=== PATIENT | female | born 1985 | race Caucasian/White ===

== ENCOUNTER 2017-11-14 10:13 | Emergency (ER) | payer MEDICAID, SELFPAY ==
[2017-11-14 10:13] VITALS: BP 144/55; PULSE 60; RESP 18; TEMP 36.6; O2SAT 99; BMI 24.5
--- NOTE | 2017-11-14 10:25 | EKG12_ITS ---
Test Reason : CHEST PAIN Blood Pressure : / mmHG Vent. Rate : 057 BPM Atrial Rate : 057 BPM P-R Int : 132 ms QRS Dur : 072 ms QT Int : 418 ms P-R-T Axes : 000 078 060 degrees QTc Int : 406 ms Sinus bradycardia Septal infarct , age undetermined Abnormal ECG Confirmed by ELVIA HUNTLEY, NILAM ([id number]), telegraph editor RAH BEY ([id number]) on 11/17/2017 4:03:21 PM Referred By: MARCELO Confirmed By:NILAM GAN MD
[2017-11-14] MEDS: Aspirin 81 MG TAB.CHEW 324 MG PO (10:31)
[2017-11-14 10:32] VITALS: BP 104/68; PULSE 61
--- NOTE | 2017-11-14 10:34 | ED.VISSUMM ---
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 Denies previous episodes of chest pain. Reports left-sided parasternal chest pain with radiation to the left upper extremity. Denies shortness of breath. Denies diaphoresis. Denies nausea/vomiting. Physical Examination: [] Afebrile, vital signs stable. 31-year-old female in no acute distress. Cardiovascular exam is regular rate and rhythm. Lungs are clear to auscultation. Abdomen is soft and nontender. No lower extremity edema. Test Results: [] EKG shows normal sinus rhythm, rate of 57 without ischemia or ectopy. There are noticeable U waves consistent with hypokalemia in the EKG. Emergency Department Course and Treatment: [] CBC, BMP returned normal with the exception of a potassium of 3.0. This finding is reflected in the EKG. This may be the cause of the patient's nonspecific symptoms. Troponin negative. D-dimer negative. Chest x-ray negative. Treatment Plan: [] Patient provided aspirin nitroglycerin upon arrival. After the diagnostic and laboratory findings identified hypokalemia the patient was provided 40 mEq of K-Dur orally. She will be given a prescription for K-Dur to take for the next 10 days. She was encouraged to add potassium to her diet through fruits and vegetables. Disposition: [] Discharge, stable. Impression: [] Chest pain Hypokalemia This note was generated with [employer] dictation software. It may contain incorrect words, spelling, and punctuation that were not noted in review of the chart prior to signing ED Disposition - Plan for ED Patient: Chief Complaint: Chest Pain Referrals: Aaron Stanley MD [Primary Care Provider] -
--- NOTE | 2017-11-14 10:38 | ED.DCSUM_ITS ---
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 Denies previous episodes of chest pain. Reports left-sided parasternal chest pain with radiation to the left upper extremity. Denies shortness of breath. Denies diaphoresis. Denies nausea/vomiting. Physical Examination: [] Afebrile, vital signs stable. 31-year-old female in no acute distress. Cardiovascular exam is regular rate and rhythm. Lungs are clear to auscultation. Abdomen is soft and nontender. No lower extremity edema. Test Results: [] EKG shows normal sinus rhythm, rate of 57 without ischemia or ectopy. There are noticeable U waves consistent with hypokalemia in the EKG. Emergency Department Course and Treatment: [] CBC, BMP returned normal with the exception of a potassium of 3.0. This finding is reflected in the EKG. This may be the cause of the patient's nonspecific symptoms. Troponin negative. D-dimer negative. Chest x-ray negative. Treatment Plan: [] Patient provided aspirin nitroglycerin upon arrival. After the diagnostic and laboratory findings identified hypokalemia the patient was provided 40 mEq of K- Dur orally. She will be given a prescription for K-Dur to take for the next 10 days. She was encouraged to add potassium to her diet through fruits and vegetables. Disposition: [] Discharge, stable. Impression: [] Chest pain Hypokalemia This note was generated with [employer] dictation software. It may contain incorrect words, spelling, and punctuation that were not noted in review of the chart prior to signing ED Disposition - Plan for ED Patient: Chief Complaint: Chest Pain Referrals: Aaron Stanley MD [Primary Care Provider] -
[2017-11-14 10:40] LABS: Absolute Lymphocyte Count 2.74 X10^3/ul (0.83-4.51); Absolute Neutrophil Count 3.2 X10^3/uL (2.0-7.7); Basophil# 0.03 X10^3/uL; Basophil% 0.5 % (0-1); Eosinophil# 0.17 X10^3/uL; Eosinophils% 2.6 % (0-5); Hematocrit 43.2 % (37-47); Lymphocyte # 2.74 X10^3/ul (4.0); Lymphocyte % 41.1 % (19-41); Mean Corp Hgb Conc 34.7 g/gl (32-36); Mean Corpuscular Hgb 31.1 pg (27.0-32.0); Mean Corpuscular Volume 89.4 fL (81-99); Monocyte# 0.49 X10^3/uL; Monocyte% 7.4 % (0-10); Neutrophil # 3.22 X10^3/uL (2.7-7.7); Neutrophil % 48.2 % (47-70); POSITIVE COUNT NO; POSITIVE DIFFERENTIAL NO; POSITIVE MORPHOLOGY NO; Platelet Count 212 K/mm3 (150-450); RBC Distribution Width CV 12.5 % (11.6-14.6); RBC Distribution Width SD 39.9 fl (35.1-43.9); Red Blood Count 4.83 M/mm3 (4.2-5.4); White Blood Count 6.7 K/mm3 (4.4-11.0)
[2017-11-14 10:43] VITALS: BP 107/55; PULSE 57
--- NOTE | 2017-11-14 10:44 | RAD_ITS ---
STUDY: X-RAY CHEST REASON FOR EXAM: Female, 31 years old. Left arm numbness, chest pain TECHNIQUE: Frontal and lateral views COMPARISON: None. FINDINGS: The lungs are clear and expanded. There is no demonstrated pleural abnormality. Normal size heart. Normal mediastinum and [place]. Normal visualized pulmonary arteries. Normal visualized aortic arch and descending thoracic aorta. Normal visualized thoracic spine. Normal visualized ribs, clavicles, and shoulders. There is no demonstrated abnormality of the visualized soft tissue structures of the upper abdomen. RAD/Chest PA and Lateral IMPRESSION: Normal x-ray examination of the chest. Electronically Signed: Renaldo Neal DO at 11:18 EDT Tel [phone], Service support ,
[2017-11-14 10:48] LABS: D-Dimer Quantitative (DVT/PE) < 0.27 FEU/ug/m (0.27-0.49)
[2017-11-14 10:55] LABS: Anion Gap 8 (5-15); BUN 6 mg/dL (7-18); BUN/Creat Ratio 8.1 RATIO (10-20); Calcium,Total 8.8 mg/dL (8.5-10.1); Chloride 107 mmol/L (98-107); Creatinine, Serum 0.74 mg/dL (0.55-1.02); EST Glomerular Filtration Rate 97 mL/min (>60); Est Glom Filt Rate - Afr Amer 117 mL/min (>60); Estimated Creatinine Clearance 94.25 ml/min; Glucose 79 mg/dL (74-106); Sodium Level 140 mmol/L (136-145)
[2017-11-14 11:11] VITALS: O2SAT 100
[2017-11-14 11:27] VITALS: BP 103/64; PULSE 52; RESP 16; O2SAT 100
--- NOTE | 2017-11-14 11:32 | ED.DEP ---
ED Disposition - Plan for ED Patient: Disposition: Home or Assisted Living Chief Complaint: Chest Pain Instructions: ED Chest Pain NonCardiac, ED Potassium Deficiency Prescriptions: Potassium Chloride [K-Dur] 20 meq PO BID #20 tab Referrals: Aaron Stanley MD [Primary Care Provider] -
== END 2017-11-14 11:44 | disposition home or self-care (01) ==
PROVIDERS: Emergency Provider Emergency Medicine; Family Provider Family Medicine; PCP Family Medicine
DX: R07.9 Chest pain, unspecified (principal); E87.6 Hypokalemia; Z72.0 Tobacco use
CPT/HCPCS: 71046; 80048; 84484; 85025; 85379; 93005; 99284; J7030; A4216

== ENCOUNTER 2017-12-21 14:36 | Emergency (ER) | payer MEDICAID, SELFPAY ==
[2017-12-21 14:36] VITALS: BP 139/73; PULSE 57; RESP 16; TEMP 36.2; O2SAT 100; BMI 24.9
--- NOTE | 2017-12-21 14:48 | ED.VISSUMM ---
- ER Visit Summary Date of Service: 12/21/17 Chief Complaint: Pain, vomiting History of Present Illness: The patient is a 32 F with a history of chronic abdominal pain presents to the emergency department with abdominal pain and vomiting. The patient states yesterday, she had a dull ache in her low back. She denied any urinary symptoms. She states that she took some Tylenol and it relieved the pain. She states that pain came back this morning. She is at work and became very nauseated. She began have pain in her upper abdomen which she states she gets from time to time because of gastritis. She states she vomited twice. She states the vomit was dark and she thinks it may have been blood. She states this will also happen from time to time. She is only currently on potassium replacement. She denies any fevers or chills. She has had prior appendectomy but no other abdominal surgery. She denies any other current symptoms. She states she had to leave work because of it. Physical Examination: Vital signs reviewed General: Well-nourished, well-developed Head: Normocephalic, atraumatic Eyes: Pupils equal and reactive, extraocular muscles intact Neck, supple, no lymphadenopathy Heart: Regular rate and rhythm Respiratory: No distress, clear bilaterally Abdomen: Soft, mild tenderness in the midepigastric area without rebound or guarding, nondistended, no peritoneal signs Back: Nontender Extremities: Nontender, no edema, no cords Skin: Normal color no rash Neuro: Alert and oriented, no focal or lateralizing deficits Test Results: [] Emergency Department Course and Treatment: The patient has very minimal tenderness in the midepigastric area. There is no rebound or guarding. She has a history of the same. IV was established. She was given morphine and Zofran. On reevaluation, she is resting comfortably. She was also given IV Pepcid. Screening labs occluding liver and lipase are unremarkable. Her urine does show some blood. The patient denies being on her menses. She may have a small stone. She also did have some visible trichomonas seen. She has had anaphylaxis to Flagyl. With this, I will treat her with clindamycin inserts even though this is not the recommended therapy as her risk for anaphylaxis is so high. She has no reproducible flank pain. She has a benign abdomen. She has no evidence of urinary infection. I do feel that this may be multifactorial. The patient was treated with 2 days of analgesics and antiemetics. She will be discharged home, return with any worsening symptoms. Treatment Plan: [] Disposition: Discharge Impression:. Nausea vomiting 2. Gastritis 3. Flank pain This note was generated with [employer] dictation software. It may contain incorrect words, spelling, and punctuation that were not noted in review of the chart prior to signing ED Disposition - Plan for ED Patient: Chief Complaint: Nausea/Vomiting Instructions: ED Flank Pain Uncertain Cause, ED Nausea Vomiting Prescriptions: Oxycodone HCl/Acetaminophen [Percocet 5/325] 1 tab PO Q6H PRN PRN 2 Days #6 tab PRN Reason: Pain Ondansetron [Zofran Odt] 4 mg PO Q8H PRN PRN #10 tab PRN Reason: Nausea Clindamycin Phosphate [Cleocin] 100 mg VG DAILY #7 supp.vag Famotidine [Pepcid] 20 mg PO BID #28 tab Referrals: Aaron Stanley MD [Primary Care Provider] -
[2017-12-21 15:07] LABS: Absolute Lymphocyte Count 2.49 X10^3/ul (0.83-4.51); Absolute Neutrophil Count 4.1 X10^3/uL (2.0-7.7); Basophil# 0.03 X10^3/uL; Basophil% 0.4 % (0-1); Eosinophil# 0.08 X10^3/uL; Eosinophils% 1.1 % (0-5); Hemoglobin 15.4 g/dl (12.0-15.0); Lymphocyte # 2.49 X10^3/ul (4.0); Lymphocyte % 35.1 % (19-41); Mean Corp Hgb Conc 34.2 g/gl (32-36); Mean Corpuscular Hgb 30.7 pg (27.0-32.0); Mean Corpuscular Volume 89.8 fL (81-99); Monocyte# 0.38 X10^3/uL; Monocyte% 5.4 % (0-10); Neutrophil # 4.11 X10^3/uL (2.7-7.7); Neutrophil % 57.9 % (47-70); Platelet Count 245 K/mm3 (150-450); RBC Distribution Width CV 12.2 % (11.6-14.6); RBC Distribution Width SD 39.6 fl (35.1-43.9); Red Blood Count 5.01 M/mm3 (4.2-5.4); White Blood Count 7.1 K/mm3 (4.4-11.0)
[2017-12-21 15:08] LABS: POSITIVE COUNT NO; POSITIVE DIFFERENTIAL NO; POSITIVE MORPHOLOGY NO
[2017-12-21] MEDS: 0.9% Normal Saline 1,000 ML 1000 ML IV (15:10)
[2017-12-21] MEDS: Ondansetron 4 MG/2 ML Vial IV (15:10)
[2017-12-21] MEDS: Morphine 4 MG/ML Syringe IV (15:10)
[2017-12-21 15:18] LABS: Bacteria 0 SEEN /hpf (None Seen); Mucous, Urine 0 SEEN /hpf (<or=2+); Red Blood Cells-Urine 0 SEEN /hpf (0-5)
[2017-12-21 15:19] LABS: Color, Urine Yellow (Yellow); Glucose, Dipstick Normal (Normal); Ketone-Dipstick Negative (Negative); Leukocyte Esterase-Dipstick Negative /ul (Negative); Nitrite-Dipstick Negative (Negative); Occult Blood-Urine 250 /ul (Negative); Protein-Dipstick Negative (Negative); Urine Bilirubin Dipstick Negative (Negative); Urine Clarity Sl. Cloudy (Clear); Urine Urobilinogen Normal (Normal); Urine pH 6.5 (5.0 - 8.0)
[2017-12-21 15:24] LABS: ALB/GLOB Ratio 0.9 RATIO (0.9-2.4); AST(SGOT) 16 U/L (15-37); Alanine Aminotransfer ALT/SGPT 23 U/L (13-56); Albumin, Serum 3.9 g/dL (3.2-5.0); Alkaline Phosphatase 103 U/L (45-117); Anion Gap 10 (5-15); BUN 5 mg/dL (7-18); BUN/Creat Ratio 6.3 RATIO (10-20); Calcium,Total 8.7 mg/dL (8.5-10.1); Chloride 103 mmol/L (98-107); EST Glomerular Filtration Rate 88 mL/min (>60); Est Glom Filt Rate - Afr Amer 107 mL/min (>60); Estimated Creatinine Clearance 86.37 ml/min; Globulin 4.2 g/dL (2.2-4.2); Glucose 98 mg/dL (74-106); Lipase 91 U/L (73-393); Potassium 3.3 mmol/L (3.5-5.1); Protein, Total 8.1 g/dL (6.4-8.2); Sodium Level 139 mmol/L (136-145)
[2017-12-21 15:26] LABS: Internal QC Validated? YES +Cl - CLEAR BKGD; Pregnancy, Urine Negative Negative
[2017-12-21 15:44] LABS: Squamous Epithelial Cells - UA 0-5 SEEN /hpf (5-10)
[2017-12-21 15:45] LABS: White Blood Cells 0-5 SEEN /hpf (0-5)
[2017-12-21 15:48] LABS: Trichomonas 0-5 SEEN /hpf (None Seen)
--- NOTE | 2017-12-21 15:57 | ED.RN ---
Lab called to clarify trichomonas in urine. per dileep, she did she trichomonas in ER
[2017-12-21 16:10] VITALS: BP 149/80; PULSE 51; RESP 18; O2SAT 100
== END 2017-12-21 16:11 | disposition home or self-care (01) ==
PROVIDERS: Emergency Provider Emergency Medicine; Family Provider Family Medicine; PCP Family Medicine
DX: R11.2 Nausea with vomiting, unspecified (principal); K29.70 Gastritis, unspecified, without bleeding; A59.00 Urogenital trichomoniasis, unspecified; R10.9 Unspecified abdominal pain; G89.29 Other chronic pain; Z72.0 Tobacco use; Z79.899 Other long term (current) drug therapy; Z88.3 Allergy status to other anti-infective agents
CPT/HCPCS: 80053; 81001; 81025; 83690; 85025; 96361; 96365; 96375; 99283; J2405; J3490

== ENCOUNTER 2018-02-27 17:00 | Emergency (ER) | payer MEDICAID, SELFPAY ==
[2018-02-27 17:01] VITALS: BP 119/73; PULSE 60; RESP 16; TEMP 36.8; O2SAT 99; BMI 24.5
--- NOTE | 2018-02-27 17:15 | ED.VISSUMM ---
- ER Visit Summary Date of Service: 02/27/18 Chief Complaint: Boil History of Present Illness: The patient is a 32 F with a boil in her right groin. This has been there for 2-3 days. It is painful. She tried jciz-msh-deuxurb remedies but nothing seems to help. She has not had any bleeding or drainage. No fever or systemic symptoms. It is associated with some surrounding redness. Physical Examination: Afebrile vital signs unremarkable. Chaperoned exam showed a round, 2 cm in diameter area of induration with surrounding erythema about the size of the patient's palm. No fluctuance. No bleeding or pus. Neurovascularly intact distally. The remainder of her exam is unremarkable. Test Results: None indicated Emergency Department Course and Treatment: Patient presents with an early abscess. Concern for MRSA. Patient declined I&D and would like to try antibiotics first. Will prescribe Bactrim and Keflex. Return for new or worsening issues. Patient was advised that she may need to return for incision and drainage if this worsens. Treatment Plan: As above Disposition: Discharged Impression: 1. Right thigh cellulitis This note was generated with [employer] dictation software. It may contain incorrect words, spelling, and punctuation that were not noted in review of the chart prior to signing ED Disposition - Plan for ED Patient: Chief Complaint: Abscess Referrals: Aarno Stanley MD [Primary Care Provider] -
--- NOTE | 2018-02-27 17:17 | ED.DEP ---
ED Disposition - Plan for ED Patient: Chief Complaint: Abscess Instructions: ED Infec Skin Cellulitis Prescriptions: Cephalexin [Keflex] 500 mg PO Q6 #28 cap Smz/Tmp Ds [Bactrim Ds] 1 tab PO BID #14 tab Referrals: Aaron Stanley MD [Primary Care Provider] -
[2018-02-27] MEDS: Smz/Tmp Ds Tablet 1 TABLET PO (17:36)
[2018-02-27] MEDS: Cephalexin 250 MG Capsule 500 MG PO (17:36)
[2018-02-27 17:37] VITALS: PULSE 62; RESP 14; O2SAT 98
== END 2018-02-27 17:38 | disposition home or self-care (01) ==
PROVIDERS: Emergency Provider Emergency Medicine; Family Provider Family Medicine; PCP Family Medicine
DX: L03.115 Cellulitis of right lower limb (principal); K21.9 Gastro-esophageal reflux disease without esophagitis; F17.200 Nicotine dependence, unspecified, uncomplicated
CPT/HCPCS: 99283

== ENCOUNTER 2018-05-09 23:09 | Emergency (ER) | payer MEDICAID, SELFPAY ==
[2018-05-09 23:10] VITALS: BP 107/68; PULSE 67; RESP 18; TEMP 36.6; O2SAT 97; BMI 24.9
--- NOTE | 2018-05-09 23:19 | ED.VISSUMM ---
- ER Visit Summary Date of Service: 05/09/18 Chief Complaint: Left ankle pain History of Present Illness: The patient is a 32 F who presents with left ankle pain. Started 3 days ago. She stepped on a rock and twisted her foot. She went back to work today and the more she stood on her ankle but more it hurt. Hurts on the lateral portion of the ankle. It is worse with movement. She took nothing for it at home. Denies any significant swelling. No previous surgeries. Physical Examination: Left ankle exam reveals tenderness palpation over the lateral malleolus and ATFL area. She does have painful range of motion. There is no swelling. She has 2+ DP pulses Test Results: Left ankle x-ray negative Emergency Department Course and Treatment: Patient has a sprain. She will ice, elevate and use NSAIDs. She will follow-up with her PCP Treatment Plan: [] Disposition: Discharge Impression: Left ankle sprain This note was generated with [employer] dictation software. It may contain incorrect words, spelling, and punctuation that were not noted in review of the chart prior to signing ED Disposition - Plan for ED Patient: Chief Complaint: Lower Extremity Injury Referrals: Aaron Stanley MD [Primary Care Provider] -
--- NOTE | 2018-05-09 23:37 | ED.DEP ---
ED Disposition - Plan for ED Patient: Disposition: Home or Assisted Living Chief Complaint: Lower Extremity Injury Instructions: ED Sprain Ankle W X Ray Referrals: Aaron Stanley MD [Primary Care Provider] -
[2018-05-10 00:11] VITALS: RESP 16
--- NOTE | 2018-05-10 00:11 | ED.RN ---
AUGUST WRAPPED APPLIED TO LEFT ANKLE. [facility]SP INTACT. PT VERBALIZED UNDERSTANDING OF INSTRUCTIONS
== END 2018-05-10 00:11 | disposition home or self-care (01) ==
LOC: ED 05-10 00:02
PROVIDERS: Emergency Provider Emergency Medicine; Family Provider Family Medicine; PCP Family Medicine
DX: S93.402A Sprain of unspecified ligament of left ankle, initial encounter (principal); X50.1XXA Overexertion from prolonged static or awkward postures, initial encounter; Y93.9 Activity, unspecified; Y92.9 Unspecified place or not applicable; Y99.9 Unspecified external cause status; Z72.0 Tobacco use
CPT/HCPCS: 73610; 99282

== ENCOUNTER 2018-07-05 07:18 | Emergency (ER) | payer MEDICAID, SELFPAY ==
[2018-07-05 07:19] VITALS: BP 108/73; PULSE 70; RESP 15; TEMP 36.1; O2SAT 99; BMI 25.1
[2018-07-05] MEDS: Carbamide Peroxide 15 ML Bottle 10 DRP OTIC (07:38)
--- NOTE | 2018-07-05 07:39 | ED.DCSUM_ITS ---
- ER Visit Summary Date of Service: 07/05/18 Chief Complaint: Nausea vomiting and spinning History of Present Illness: The patient is a 32 F who states this morning when she awoke she had nausea vomiting. She reports her balance is off and has motion/spinning. Symptoms improved/resolved with closing of her eyes. She denies fever, chills or night sweats. She does complain of bifrontal headache. She denies double vision, blurred vision or loss of vision. She does report ringing of her ears. She denies rhinorrhea, congestion or postnasal drainage. She denies sore throat. She denies chest discomfort or palpitations. She denies shortness of breath, dyspnea on exertion, orthopnea or PND. She denies hematemesis, melena or diarrhea. She denies abdominal pain. She denies urologic symptoms. She does report lightheadedness. She denies anesthesia, paresthesia or motor weakness. She denies bruising easily or problems with bleeding. She denies hives or symptoms of angioedema. Physical Examination: Vital signs noted and temperature is 96.9 which is below normal but not significant. Head is atraumatic normocephalic. Pupils equal round reactive. Extraocular muscles are intact. Sclerae anicteric. Conjunctive is not injected. Right TM is impacted with cerumen. Left TM is normal. Nares patent. Uvula midline. There is no erythema or exudate of posterior pharynx. Trach is midline. No carotid bruit. Heart is regular without murmur, gallop or rub. S1 and S2 are normal. Lungs are clear to auscultation with good movement of air bilaterally. Abdomen soft nontender bowel sounds present normal. Patient is alert and oriented ?3. Motor is 5 over 5. Sensory is intact. DTRs are symmetric with no clonus or Babinski sign. Cranial 2 through 12 are intact. Cerebellar testing is normal. Turning the patient's head to the right or left resulted in nausea and nystagmus. Test Results: None Emergency Department Course and Treatment: Patient has findings consistent with peripheral vertigo. She does report improvement with eyes closed. Since the right auditory canal is impacted with cerumen and may be the cause will be proximal and irrigate. If no improvement after disimpaction of right auditory canal will perform Caitlin maneuver. Treatment Plan: Right ex sternal auditory canal was successfully cleared of cerumen impaction. 80-90% of the TM was visualized. Slight blood was noted secondary to abrasion right external auditory canal. She no longer had nausea, vomiting or altered sensation after cerumen impaction removed. She left the emergency room prior to repeat Shantanu-Hallpike maneuver. Disposition: Patient left prior to reexamination Impression: 1. Paroxysmal benign positional vertigo 2. Cerumen impaction right external auditory canal This note was generated with [employer] dictation software. It may contain incorrect words, spelling, and punctuation that were not noted in review of the chart prior to signing ED Disposition - Plan for ED Patient: Disposition: Acute Care [facility] Chief Complaint: Nausea/Vomiting Referrals: Aaron Stanley MD [Primary Care Provider] -
[2018-07-05] MEDS: Ondansetron ODT 4 MG Tablet PO (08:24)
--- NOTE | 2018-07-05 09:40 | ED.RN ---
PT UPSET. FEELS NOTHING HAS CHANGED AND SHE WANT TO GO HOME WE ARE NOT HELPING HER. EDUCATION ON EAR DROPS AND TIME FOR IT TO WORK. PROCESS OF CLEARING EAR AND THE VERTIGO SHE IS EXPIRENCING. REASSURANCE. BLANKETS GIVEN. TOUCHED BASE WITH DR CORREA REGARDING HER HEAD PAIN AND THE NEED FOR FURTHER EAR IRRIGATION.
--- NOTE | 2018-07-05 09:50 | ED.RN ---
DR CORREA AT BEDSIDE IRRIGATED RT EAR WITHOUT RESULTS. DR CORREA USED CURET TO CLEAT OUT LARGE AMOUNT OF WAX. VISIALLY STILL IMPACTED. IRRIGATED AGAIN. PT TEARFUL STS NOW I HAVE EAR PAIN TO. REASSURANCE AND EDUCATION REINFORCED. TRYING TO GET MEDICIATION FOR EDGE. PT REQUESTED MAHIN, PHARMACY CONSULTING
[2018-07-05 09:58] VITALS: BP 102/78; PULSE 77; RESP 16; O2SAT 98
--- NOTE | 2018-07-05 10:22 | ED.RN ---
PT TEARFUL AND UPSET. EAR REMAINS PAINFUL DISCUSSED OTHER PAIN OPTIONS D/T NOT HAVING EXCEDRIN AVAILABLE. PT STATES i'M LEAVING. i DONT WANT ANYTHING MORE. i DONT WANT THAT DR TO COME BACK IN HERE. IM LEAVING.. PT LEFT WITHOUT DC PAPERS.
== END 2018-07-05 10:24 | disposition short-term general hospital (02) ==
LOC: ED 07:29
PROVIDERS: Emergency Provider Emergency Medicine; Family Provider Family Medicine; PCP Family Medicine
DX: H81.10 Benign paroxysmal vertigo, unspecified ear (principal); H61.21 Impacted cerumen, right ear; K21.9 Gastro-esophageal reflux disease without esophagitis; Z72.0 Tobacco use
CPT/HCPCS: 99282

== ENCOUNTER → 2019-04-12 10:07 | Outpatient (CLI) | payer MEDICAID, SELFPAY ==
--- NOTE | 2019-04-12 10:19 | RAD_ITS ---
STUDY: X-RAY - LEFT FOOT CLINICAL: Female, 33 years old. Swelling and bruising overlying the great toe following injury. TECHNIQUE: 3 view(s) of the foot. COMPARISON: None. FINDINGS: Normal talus, calcaneus, and tarsal bones. Normal visualized subtalar, talonavicular, calcaneocuboid, tarsal and tarsometatarsal articulations. Normal metatarsi. Normal metatarsophalangeal joint of the great toe. Normal tibial and fibular sesamoid bones. Normal interphalangeal joint of the great toe. Normal phalanges of the great toe. Normal second through fifth metatarsophalangeal joints. Normal interphalangeal joints and phalanges of the lesser toes. The soft tissue structures are unremarkable. RAD/Foot min 3 Views IMPRESSION: Normal x-ray examination of the foot. Electronically Signed: Abe Bryan, at 12:24 EDT , Service support ,
== END ==
PROVIDERS: Family Provider Family Medicine; PCP Family Medicine; Referring Provider Nurse Practitioner Family; Visit Provider Nurse Practitioner Family
DX: S99.922A Unspecified injury of left foot, initial encounter (principal); X58.XXXA Exposure to other specified factors, initial encounter; Y93.9 Activity, unspecified; Y92.9 Unspecified place or not applicable; Y99.9 Unspecified external cause status
CPT/HCPCS: 73630

== ENCOUNTER → 2020-09-03 11:37 | Outpatient (CLI) | payer MEDICAID, SELFPAY | PROVIDERS: PCP Family Medicine; Visit Provider Family Medicine | DX: Z20.828 Contact with and (suspected) exposure to other viral communicable diseases (principal) | CPT/HCPCS: 87635; U0003 ==

== ENCOUNTER → 2021-07-18 | Outpatient (CLI) | payer MEDICAID, SELFPAY | END | disposition home or self-care (01) | PROVIDERS: PCP Family Medicine; Visit Provider Family Medicine | DX: Z20.822 Contact with and (suspected) exposure to COVID-19 (principal) | CPT/HCPCS: 87635; U0005; U0003 ==

== ENCOUNTER 2021-10-01 09:34 | Outpatient (CLI) | payer MEDICAID, SELFPAY ==
--- NOTE | 2021-10-01 09:40 | RAD_ITS ---
STUDY: X-RAY - CERVICAL SPINE REASON FOR EXAM: Female, 35 years old. Right arm numbness and tingling for 1 week. TECHNIQUE: 5 view(s) of the cervical spine were obtained including oblique views. COMPARISON: None FINDINGS: Normal anterior atlantoaxial articulation. Normal odontoid process. There is straightening of the normal cervical lordosis. Normal vertebral bodies and endplates. Normal disc space heights. Normal visualized intervertebral neuroforamina. The soft tissue structures are unremarkable. RAD/Cerv Spine 4 or 5 Views IMPRESSION: There is straightening of the normal cervical lordosis. Electronically Signed: Abe Bryan MD at 14:40 EST ,
== END 2021-10-01 23:59 | disposition short-term general hospital (02) ==
LOC: MTRAD 09:36
PROVIDERS: PCP Family Medicine; Referring Provider Registered Nurse; Visit Provider Registered Nurse
DX: R20.0 Anesthesia of skin (principal)
CPT/HCPCS: 72050

== ENCOUNTER 2021-10-29 09:26 | Outpatient (CLI) | payer MEDICAID, SELFPAY ==
--- NOTE | 2021-10-29 10:45 | NEURO ---
NCS and/or EMG Patient Report Ordering Doctor: Aaron Stanley DATE OF SERVICE: 10/29/21 Lexie complains of pain and numbness in the right hand for the past six months. Electrodiagnostic Findings: The right median motor nerve demonstrates prolonged latency with normal amplitude and conduction velocity. Normal right ulnar motor response. Normal median ulnar F waves. Prolonged right median sensory latency at the wrist. Normal ulnar and radial sensory responses. On needle EMG, all muscles tested in the right upper limb showed no evidence of denervation with normal motor unit action potentials Electrodiagnostic impression: This is an abnormal study in the right upper limb. 1. Electrodiagnostic findings demonstrate right-sided median mononeuropathy. This consistent with a mild right carpal tunnel syndrome
== END 2021-10-29 23:59 | disposition home or self-care (01) ==
PROVIDERS: PCP Family Medicine; Referring Provider Registered Nurse; Visit Provider Registered Nurse
DX: R20.0 Anesthesia of skin (principal)
CPT/HCPCS: 95886; 95910

== ENCOUNTER 2021-10-31 11:30 | Outpatient (RCR) | payer MEDICAID, SELFPAY ==
--- NOTE | 2021-10-07 10:50 | HP.PTEVAL_ITS ---
Patient's Visit Information LEROY GREGORIO is a 35 year old F referred to Physical Therapy by TONIA ROSE with a diagnosis of Arm numbness. Date of Evaluation: 10/07/21 Physical Therapist: Aaron Mcknight, JVT, OCS, CSCS - Visit Plan Frequency: 3x /Week Duration: 2-4 Weeks Plan: 3x/week for 4 weeks for... 1. STM/DTR and ROM to R scap muscles progressing to posture and R UE strength and nerve stretches. 2. TENS with MH/US as helpful and needed. - Subjective R arm has got tingling and numbness and gets weaker and weaker. Started 6 months ago but worse in last couple weeks as it is waking her up. Drop stuff with her right hand. Is R handed. Gets sharp pain in upper arm and down anterior arm usually before it goes numb. No pattern to this. Happens 6x /day and wakes her up 3x/ at night. It lasts 30-45 seconds and then it can go away. massage helps. Sleeping is interrupted. dropping things at work. Works at [employer] and this is effecting her job. Dressing at home is OK. Basic ADLs are getting done for the most part. Hobbies include camping and razors. This would keep her from doing that. No neck pain. - Pain R arm Pain Intensity (Out of 10): 0 Pain Intensity Range: 0, 6 - Objective Posture is forward head and scapula, protective of R scapula. Max tender posterior r scap muscles rhomboids, mid traps, UT. Not tender on L. Stretching nerves on R UE causes pain and muscle spasms. Cervical aROM is normal and without pain today. r scapular motion is painful mostly in depression and retraction and hence limited in voluntary ROM. R shoulder moves to 130 limited due to scap pain. elbow and wrist AROM WFL and normal but hesitant. reflexes 1/3 B bi and tri. sensation UE WNL to gross light touch but c/o some minor numbness today. strength is weak in thumb ext, wrist flex,ext, elbow flex, ext and shoulder flexion, all cause tension in R scap and painful response, 3+ to 4- /5, L side is painfree and 4+/5. - c/s compression. walks normal and transfer normal and safe with good balance. - Balance/Special Test Scores Quick DASH Score: 34.0900 - Goals Goal 1:: Full R UE AROM without pain or hesitation Goal Time Frame: 2-4 Weeks Goal 2:: Patient feel numbness and pain 90% better and 1/10 at worst Goal Time Frame: 2-4 Weeks Goal 3:: Sleep without waking due to pain Goal Time Frame: 2-4 Weeks Goal 4:: I appropriate management of condition/exercises/posture Goal Time Frame: 2-4 Weeks - Rehabilitation Potential Physical Therapy Diagnosis: R arm numbness, weakness and pain form scapular area limiting sleep and function Rehabilitation Potential: Fair - Anticipated Interventions Patient/Client Instruction: Educate patient on: Condition, Plan of Care For the Purpose of:: To decrease pain, To increase ROM, To improve muscle performance and motor function, To improve ability of physical actions for home/community/work/leisure Therapeutic Exercise to Include: Strength training, Passive ROM, Active ROM For the Purpose of:: To decrease pain, To increase ROM, To improve muscle performance and motor function Manual Therapy Techniques to Include: Trigger point massage, Soft tissue mobilization For the Purpose of:: To decrease pain, To increase ROM, To improve nutrient delivery to tissue, To improve muscle performance and motor function, To improve ability to perform ADL's TENS: Yes Thermo therapy (hot pack): Yes Ultrasound (thermal/non thermal): Yes - R scap muscles thermal For the Purpose of:: To decrease pain, To improve nutrient delivery to tissue Thank you for the opportunity to evaluate your patient. For Medicare and Medicare HMO plans, please review the plan of care and approve it. It will need to be FAXED BACK to us at [phone] for Medicare purposes. For Medicare only, by signing this I certify the plan of care. Please let me know if there are questions or concerns regarding this plan of care. Physician Signature: Date:
--- NOTE | 2021-10-31 12:15 | HP.PTREVAL_ITS ---
Faith Goodson, JEREMIAH-C, It has been my pleasure to treat LEROY GREGORIO over the last 10 visits for Arm numbness. Please see the progress note below for an update on the physical therapy plan of care! Subjective: Getting better. A little looser than wehn she started. Tingling and numbness gone in hand. Still has discomfort in upper arm. Has been diagnosed with CTS and will have injection later today. Pain gets to 4/10 after work. Better quickly. HEP going OK. Pt wants to work ex at home and see how it goes. Objective/Function: Full UE AROM and cervical ROM just slight pain at end of flexion at times but full motion. strength is 4/5 without pain today in UE. Goals are progressing nicely. Pt wishes to try via ex at home and f/u down the road , will call prior if condition worsens. Plan Plan: [facility] and f/u 3 weeks to ensure progress and d/c if doing well, will call prior if worsens. Balance/Gait/Functional tests - Balance/Special Test Scores Quick DASH Score: 15.9075 Goals Goal 1:: Full R UE AROM without pain or hesitation Goal Time Frame: 2-4 Weeks Goal Progress: mostly met Goal 2:: Patient feel numbness and pain 90% better and 1/10 at worst Goal Time Frame: 2-4 Weeks Goal Progress: 80% Goal 3:: Sleep without waking due to pain Goal Time Frame: 2-4 Weeks Goal Progress: Goal Met Goal 4:: I appropriate management of condition/exercises/posture Goal Time Frame: 2-4 Weeks Goal Progress: Goal Met Anticipated Interventions Patient/Client Instruction: Educate patient on: Condition, Plan of Care For the Purpose of:: To decrease pain, To increase ROM, To improve muscle perfor yevgeniy and motor function, To improve ability of physical actions for home/community/work/leisure Therapeutic Exercise to Include: Strength training, Passive ROM, Active ROM For the Purpose of:: To decrease pain, To increase ROM, To improve muscle performance and motor function Manual Therapy Techniques to Include: Trigger point massage, Soft tissue mobilization For the Purpose of:: To decrease pain, To increase ROM, To improve nutrient delivery to tissue, To improve muscle performance and motor function, To improve ability to perform ADL's TENS: Yes Thermo therapy (hot pack): Yes Ultrasound (thermal/non thermal): Yes - R scap muscles thermal For the Purpose of:: To decrease pain, To improve nutrient delivery to tissue Please do not hesitate to contact me at [phone] by phone or Fax: if you have questions or concerns regarding this new plan of care! Sincerely, Aaron Mcknight, DPT, OCS, CSCS
--- NOTE | 2021-12-18 17:31 | HP.PT.NRP ---
LEROY GREGORIO was seen in my office for initial evaluation on 10/07/21. The following Plan of Care was established for this patient: Initial Frequency: 3x /Week Initial Duration: 2-4 Weeks Patient/Client Instruction: Educate patient on: Condition, Plan of Care For the Purpose of:: To decrease pain, To increase ROM, To improve muscle performance and motor function, To improve ability of physical actions for home/community/work/leisure Therapeutic Exercise to Include: Strength training, Passive ROM, Active ROM For the Purpose of:: To decrease pain, To increase ROM, To improve muscle performance and motor function Manual Therapy Techniques to Include: Trigger point massage, Soft tissue mobilization For the Purpose of:: To decrease pain, To increase ROM, To improve nutrient delivery to tissue, To improve muscle performance and motor function, To improve ability to perform ADL's TENS: Yes Thermo therapy (hot pack): Yes Ultrasound (thermal/non thermal): Yes - R scap muscles thermal For the Purpose of:: To decrease pain, To improve nutrient delivery to tissue This patient was last seen in our office 10/31/21. Pertinent comments regarding their Physical therapy will appear below: Pt seen 10 visits and was 80% better. She was to f/u 3 weeks after last session to ensure progress but did not attend. I will discontinue at this time At this point I will be discontinuing this patient from physical therapy. I would be happy to see this patient again in the future if found appropriate by the physician. Thank you! Aaron Mcknight, DPT, OCS, CSCS Balance/Gait/Functional tests - Balance/Special Test Scores Quick DASH Score: 15.9075
== END 2021-10-31 19:00 | disposition home or self-care (01) ==
LOC: PT 11:30
PROVIDERS: PCP Family Medicine; Referring Provider Registered Nurse; Visit Provider Registered Nurse
DX: R20.0 Anesthesia of skin (principal)
CPT/HCPCS: 97014; 97035; 97110; 97140; 97161; G0283

== ENCOUNTER → 2022-08-06 | Outpatient (CLI) | payer MEDICAID, SELFPAY ==
[2022-08-06 18:22] LABS: Internal QC Validated? YES +Cl - CLEAR BKGD; Pregnancy, Urine Negative Negative
== END | disposition home or self-care (01) ==
LOC: MTLAB 14:40
PROVIDERS: PCP Family Medicine; Referring Provider Orthopaedic Surgery Sports Medicine; Visit Provider Orthopaedic Surgery Sports Medicine
DX: Z01.818 Encounter for other preprocedural examination (principal); G56.01 Carpal tunnel syndrome, right upper limb
CPT/HCPCS: 81025

== ENCOUNTER 2022-08-26 07:54 | Day surgery (SDC) | payer MEDICAID, SELFPAY ==
[2022-08-26] VITALS (9 sets, daily range): BP systolic 106–119; BP diastolic 49–69; PULSE 58–86; RESP 16–18; TEMP 36.2–36.9; O2SAT 94–100; BMI 30.4
--- NOTE | 2022-08-26 09:03 | HP.PCM_ITS ---
HPI - General HPI Narrative LEXIE GREGORIO, is a 36 F who presents for right carpal tunnel release. No changes to H and P. Questions answered. Wishes to proceed. Right wrist marked. MR#: [id number] Acct: [id number] Name:LEXIE BARRAGAN Rep #: [id number] : 1985 ? ? Provider: Dr. Miguel Quezada MD Age/Sex:? 36/F ? ? Location: [facility] [place] Status: Signed Intake Vital Signs ? 07/05/1807:19 07/09/2213:54 Height 5 ft 4 in 5 ft 5 in Weight: ?B 180 lb BMI ? 29.9 Intake Visit Reasons:?right hand Chief Complaint: right wrist Accompanied by: Self Is patient in pain?: Yes Pain scale (1-10): 8 Allergies hydrocodone [From Vicodin] Allergy (Verified 07/09/22 13:56) Swellingmetronidazole [From Flagyl] Allergy (Verified 07/09/22 13:56) Hivescodeine Adverse Reaction (Verified 07/09/22 13:56) Swellingketorolac tromethamine [From Toradol] Adverse Reaction (Verified 07/09/22 13:56) Swellingorphenadrine citrate [From Norflex] Adverse Reaction (Verified 07/09/22 13:56) Swelling Medications meloxicam 15 mg tablet 15 mg PO 07/09/22 [History Confirmed 07/09/22] multivitamin (Daily Multi-Vitamin tablet) 1 tab PO DAILY 07/09/22 [History Confirmed 07/09/22] prednisone 20 mg tablet ea PO 07/09/22 [History Confirmed 07/09/22] PFSH Medical History?(Updated 07/09/22 @ 14:16 by Miguel Quezada MD) Right carpal tunnel syndrome Surgical History?(Updated 07/09/22 @ 13:57 by Marium Piña) Hx of appendectomy Hx of section Social History?(Updated 07/09/22 @ 13:58 by Marium Piña) household members:? spouse and children Smoking Status:? Current every day smoker tobacco type: cigarettes Smoking packs per day: 0.5 Smoking cigarettes per day: 10.0 Years smoked: 20 Smoking pack- years: 10.00 alcohol intake:? current alcohol intake frequency: a few times a week HPI right hand Details: Parts of this documentation were recorded by a scribe, this documentation hannah hartley reflects the service provided and the decisions made by me, Dr. Miguel Quezada MD 07/09/22 0802. LEXIE GREGORIO is a 36 year old F here today for? right hand numb, falling asleep. WOrse at night. Burning. Asleep and wont wake up tingling, keeping her up at night. Trying a wrist brace night time splinting, NSAIDs, a cortisone injection by Dr. Stanley in October it did help until a couple days ago. It is all the fingers, from wrist down, the pinky and the 4th digit tingling but other fingers completely numb. Thumb is just numb. multivitamin, no depression, works at the [employer] in [place] close to [place]. 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 She had a past wrist fracture treated nonoperatively. Ortho Exam General General: Yes no acute distress Neurologic: Yes alert and Yes oriented x3 Psychologic: Yes reasonable and appropriate Right Wrist/Hand Skin/Wound: Yes CDI, No Swelling, No Ecchymosis, Yes nail intact and Yes capill fran refill normal Contralateral Normal: Yes A1 tye trigger: No Motor: EPL: 5, 1st Dorsal Interosseous: 5 and APB: 4 Sensation: Radial: I, Ulnar: I and Median: D WRIST: There is a positive Tinel's test of the wrist.? Positive Phalen's and Durkan's compression test she has diminished sensation throughout the median nerve distribution intact at the ulnar nerve distribution.? Negative Spurling's test.? Negative Tinel's and compression test at the elbow.? Slightly weaker handgrip compared to the other side. flexion 20 extension 40. Left Wrist/Hand Skin/Wound: No Swelling and No Ecchymosis Supplemental Info NCS and/or EMG Patient Report Ordering Doctor: Aaron Stanley DATE OF SERVICE: 10/29/21 Lexie complains of pain and numbness in the right hand for the past six months. Electrodiagnostic Findings: The right median motor nerve demonstrates prolonged latency with normal amplitude and conduction velocity.? Normal right ulnar motor response.? Normal median ulnar F waves.? Prolonged right median sensory latency at the wrist.? Normal ulnar and radial sensory responses.? On needle EMG, all muscles tested in the right upper limb showed no evidence of denervation with normal motor unit action potentials Electrodiagnostic impression: This is an abnormal study in the right upper limb. 1.? Electrodiagnostic findings demonstrate right-sided median mononeuropathy.? This consistent with a mild right carpal tunnel syndrome Coding Level of Care Code Off vis,new,level 4 Diagnoses Right carpal tunnel syndrome? G56.01 Time Spent (min) 45 Assessment and Plan Assessment and Plan (1) Right carpal tunnel syndrome: ?Status:?Acute ?Plan: 36-year female she seems to have history and physical exam as well as nerve conduction studies consistent with right carpal tunnel syndrome.? She has tried extensive conservative management.? She could also try a more night splinting but she has tried injections cord as well as anti-inflammatories and this seems to be getting worse over time.? She is interested in definitive surgical management for this.? This would be endoscopic versus open carpal tunnel release on the right side.? We discussed the pros and cons risks and benefits of this surgical intervention versus continued nonoperative management each have their onset of unique risks and complications.? Risk of incomplete release may be higher with endoscopic carpal tunnel however earlier return to function and work may be expected.? She understands wished to go ahead with surgery which would be right endoscopic carpal tunnel release, possible open. Pros and cons risks and benefits were discussed with the patient including but not limited to infection, pain, stiffness, bleeding, damage to surrounding structures, neurovascular injury, recurrence or retear, failure or wear of hardware or fixation, instability, fracture, deep vein thrombosis and pulmonary embolism, anesthetic risks, patient dissatisfaction, need for further surgery and other risks.? Patient understood and wished to proceed with surgery, and signed the informed consent documentation. [facility] Medical History (Updated 08/12/22 @ 11:34 by Rayna Dela Cruz) History of steroid therapy Marijuana use Right carpal tunnel syndrome Smoker Wears dentures Wears glasses Home Medications potassium 99 mg tablet 99 mg PO DAILY 08/12/22 [History Last Taken Unknown] Allergy/AdvReac Type Severity Reaction Status Date / Time hydrocodone [From Vicodin] Allergy Swelling Verified 08/12/22 11:27 metronidazole [From Flagyl] Allergy Hives Verified 08/12/22 11:27 codeine AdvReac Swelling Verified 08/12/22 11:27 ketorolac tromethamine AdvReac Swelling Verified 08/12/22 11:27 [From Toradol] orphenadrine citrate AdvReac Swelling Verified 08/12/22 11:27 [From Norflex] Surgical History (Updated 08/12/22 @ 11:34 by Rayna Dela Cruz) Hx of appendectomy Hx of section Social History (Updated 07/09/22 @ 13:58 by Marium Piña) household members: spouse and children Smoking Status: Current every day smoker tobacco type: cigarettes alcohol intake: current alcohol intake frequency: a few times a week
[2022-08-26] MEDS: Lactated Ringers 1,000 ML 15 ML IV (09:12)
[2022-08-26] MEDS: Cefazolin 2 GM in 0.9% Normal Saline 100 ML IV (11:05)
[2022-08-26] MEDS: Bupivacaine 0.25% 30 ML Vial (11:40)
--- NOTE | 2022-08-26 11:47 | PCM.OPRPT ---
Problems Associated Problem List Diagnoses (1) Right carpal tunnel syndrome: Report of Operation Date of Procedure: 08/26/22 Pre-Operative Diagnosis: right CTS Post-Operative Diagnosis: same Surgery/Procedure Performed:: right ECTR Surgeon: Miguel Quezada Type of Anesthesia: General and Local Anesthesiologist: Aaron Artis Estimated Blood Loss (mL): 5 Description of Procedure: Patient was brought to the operating room theater.? The patient was administered 2 g of IV Ancef prior to the start of the procedure.? Placed supine on the operating room table.? General anesthesia induced. ? SCDs on the legs.? Tourniquet applied to the operative extremity, appropriately padded. Arm table used. Operative extremity prepped and draped in the usual sterile fashion with chlorhexidine-based prep solution allowing over 3 minutes drying time prior to draping.? Preoperative timeout performed to confirm the site patient and the surgery. I began by using eschmar to exsanguinate, elevating the limb and inflating the tourniquet to 250 mmHg. Used the Arthex center line endoscopic carpal tunnel kit / technique.? I made a transverse 2 cm incision in line with the transverse wrist crease.? This was in line with the fourth digit.? I carried the dissection down through skin and subcutaneous tissue achieved meticulous hemostasis. Just ulnar to palmaris tendon.? I incised the antebrachial fascia.? I passed sequential dilators into the carpal tunnel along the radial border of the Guyon's canal aiming for the fourth digit with the hand in extension.? I used a synovial elevator to identify the transverse fibers of the transverse carpal tunnel ligament.? Passed the scope into the carpal tunnel. Once I had identified the full proximal and distal extent of the ligament I fully released the ligament under direct visualization by deploying the blade and slowly withdrawing the scope made sequential passes until I no longer felt tension as well as the entire extent of the ligament was released under direct visualization.? Arthroscope light was more visible through the skin. Pictures taken and saved. Wound thoroughly irrigated.? Tourniquet let down prior to end of the case and meticulous hemostasis achieved.? Thorough irrigation.? Placed 2 cc of quarter percent Marcaine and the skin incision site.? Incision closed with 3-0 Monocryl.? Steri-Strips were applied after the skin was cleaned and dried. Adaptic gauze and Sandeep wrap was then applied.? Patient woken up from general anesthetic transferred off the operating room table and taken to postanesthetic care unit in stable condition. All sponge needle instrument counts were correct no complications.? Plan for the patient to be discharged home according to day surgery criteria when they are comfortable. Follow-up in the office in 2 days time. Complications none Admit VTE Documentation VTE Present on Admission: No VTE Mechan Device Prophylaxis: SCD's Reason prophylaxis not ordered:: Treatment Not Indicated Procedures Musculoskeletal [id number]: Other Procedure See Report
--- NOTE | 2022-08-26 11:51 | DCINST_ITS ---
Discharge Instructions Diet Discharge Diet: No restrictions Activity Discharge Activity: Return to Normal Activity Keep extremity elevated above heart level: Operative Extremity Dressing / Incision Call your doctor if your incision/area has: Continuous Slow Oozing, Sudden Increased Bleeding, Increased Pain/ Swelling, Increased Redness, Foul Smelling Discharge and Swelling at the incision site Change Dressing in: leave in place till F/U Follow Up Care Please Follow Up With: Miguel Quezada MD When: within 2 weeks Test Results: Test results from this visit will be discussed in further detail at your follow- up appointment, if applicable. Discharge Plan Admission Attending Provider: Miguel Quezada Primary Care Provider: Aaron Stanley Discharge Orders/Prescriptions Prescriptions: No Action potassium 99 mg Tablet 99 mg PO DAILY Referrals / Follow Up: Aaron Stanley MD [Primary Care Provider] - Miguel Quezada MD [Med Staff - Active Staff] - Disposition Disposition (needs filled in before D/C Order can be placed): Home, Self Care
[2022-08-26] MEDS: Acetaminophen 500 MG Tablet 1000 MG PO (13:41)
== END 2022-08-26 14:12 | disposition home or self-care (01) ==
LOC: SDC 07:55 → AC 07:57
PROVIDERS: PCP Family Medicine; Referring Provider Orthopaedic Surgery Sports Medicine; Visit Provider Orthopaedic Surgery Sports Medicine
PROC: (CPT 29848; principal; 2022-08-26 09:50)
DX: G56.01 Carpal tunnel syndrome, right upper limb (principal); F17.210 Nicotine dependence, cigarettes, uncomplicated; Z79.1 Long term (current) use of non-steroidal anti-inflammatories (NSAID); Z79.52 Long term (current) use of systemic steroids
CPT/HCPCS: 29848; J7120; J2405

== ENCOUNTER 2022-10-05 10:25 | Emergency (ER) | payer MEDICAID, SELFPAY ==
[2022-10-05 10:25] VITALS: BP 150/72; PULSE 56; RESP 16; TEMP 36.7; O2SAT 100; BMI 29.3
--- NOTE | 2022-10-05 10:48 | EX.ED.DYSGE1 ---
HPI History of Present Illness Chief Complaint: Abd Pain Narrative Narrative: 36-year-old female here with abdominal pain. The patient states she is experiencing upper abdominal pain that radiates to back. Symptoms are constant and severe. There are no alleviating factors. [facility] History History of steroid therapy Marijuana use Right carpal tunnel syndrome Smoker Wears dentures Wears glasses Home Medications potassium 99 mg tablet 99 mg PO DAILY 08/12/22 [History Last Taken 08/25/22] Allergy/AdvReac Type Severity Reaction Status Date / Time hydrocodone [From Vicodin] Allergy Swelling Verified 10/05/22 10:27 metronidazole [From Flagyl] Allergy Hives Verified 10/05/22 10:27 codeine AdvReac Swelling Verified 10/05/22 10:27 ketorolac tromethamine AdvReac Swelling Verified 10/05/22 10:27 [From Toradol] orphenadrine citrate AdvReac Swelling Verified 10/05/22 10:27 [From Norflex] Surgical History Hx of appendectomy Hx of section Social History household members: spouse and children Smoking Status: Current every day smoker tobacco type: cigarettes alcohol intake: current alcohol intake frequency: a few times a week ROS ROS ED ROS Narrative Constitutional: Denies fever HEENT: Denies sore throat Neck: Denies neck pain Cardiovascular: Denies chest pain, syncope Respiratory: Denies shortness of breath GI: Abdominal pain, diarrhea : Denies changes in urinary habits Musculoskeletal: Denies muscle or joint pain Neurologic: Denies numbness weakness or loss of sensation Skin denies rash EXAM Physical Exam Narrative Exam Narrative: Nursing triage notes reviewed, Vital signs reviewed Constitutional: please see mdm HENT: MMM Eyes: Pupils equal round and reactive to light, Extraocular muscles intact Neck: No stridor, no JVD, full neck ROM Lungs: Clear to auscultation, No wheezing or rales. No increased work of breathing, no conversational dyspnea, no accessory muscle use, no nasal flaring. No respiratory distress noted Heart: Regular rate and rhythm, No murmurs, No rubs and No gallops, 2+ distal pulses (radial, femoral, posterior tibial) in all extremities Abdomen: Soft, there is no tenderness, rigidity, rebound or guarding, no obvious peritoneal signs, no palpable pulsatile abdominal masses, no auscultated abdominal bruit : No CVAT Extremities: No edema Neuro: No focal neurological deficits, cranial nerves II through XII intact, 5/5 strength in all extremities. Intact sensation to light touch in all extremities, 2+ reflexes bilateral patella dens. Normal gait. No ataxia. Skin: No rash or lesions noted Const Vital Signs: 10/05/22 10:25 10/05/22 14:30 Temperature 98.0 F Temperature Source Temporal Pulse Rate 56 L 58 L Respiratory Rate 16 14 Blood Pressure 150/72 H Blood Pressure Mean 98 Pulse Ox 100 100 Oxygen Delivery Method Room Air Room Air MDM MDM MDM Narrative Medical decision making narrative: Chief Complaint: Abdominal pain, diarrhea External records reviewed: I considered: AAA, small bowel obstruction, abdominal perforation, appendicitis, pancreatitis, hepatobiliary pathology (acute cholecystitis), mesenteric ischemia, abnormalities such as ovarian pathology, PID. The patient was hemodynamically stable, afebrile, nontoxic-appearing. Abdominal exam with diffuse epigastric and right upper quadrant TTP. I initially obtained a CT scan showed no evidence of acute surgical pathology. At this point add on a gallbladder ultrasound. Labs evidence of pancreatitis, hepatobiliary obstruction, significant leukocytosis to suggest severe infection no significant anemia no . Right upper quadrant ultrasound showed no evidence of an acute surgical pathology of the gallbladder. Repeat abdominal exam was stable with no new peritoneal signs. Given the lack of physical exam findings, stable vitals, labs only normal limits with no evidence of acute surgical pathology she is appropriate for discharge home. Close PCP and GI follow-up. Factors affecting care: History of appendectomy, history of section Social determinants of health: Current every day smoker Shared decision making: I will have a discussion with the patient and or visitors regarding risk/benefits of further testing or admission. They will be made aware of of the risk/benefits inherent in this decision they will be given the opportunity to voice understanding. Consults: none Lab Data Attestation: I reviewed the patient's lab results. Lab results narrative: CBC without leukocytosis, severe anemia, no thrombocytopenia. BMP with mild hypokalemia, no anion gap to suggest endorgan hypoperfusion, no subcu acute kidney injury LFTs evidence of biliary obstruction, panel dated pathology of hyperbilirubinemia The patient is not making ectopic less likely Lipase is wnl indicating no pancreatic inflammation. Labs: Laboratory Results - last 24 hr 10/05/22 10/05/22 10/05/22 10:49 10:49 10:49 WBC 8.1 RBC 5.04 Hgb 15.2 H Hct 42.9 MCV 85.1 MCH 30.2 MCHC 35.4 RDW Std Deviation 38.5 RDW Coeff of Adryan 12.5 Plt Count 294 MPV 9.7 Immature Gran % (Auto) 0.100 Neut % (Auto) 54.7 Lymph % (Auto) 36.0 [place] % (Auto) 7.0 Eos % (Auto) 1.5 Baso % (Auto) 0.7 Absolute Neuts (auto) 4.4 Absolute Lymphs (auto) 2.90 Nucleated RBC % 0 Sodium 140 Potassium 3.4 L Chloride 110 H Carbon Dioxide 24.0 Anion Gap 6 BUN 6 L Creatinine 0.67 Estim Creat Clear Calc 99.27 Est GFR (MDRD) Af Amer 127 Est GFR (MDRD) Non-Af 105 BUN/Creatinine Ratio 8.9 L Glucose 80 Calcium 9.0 Total Bilirubin 0.40 Direct Bilirubin 0.09 AST 17 ALT 21 Alkaline Phosphatase 96 Total Protein 7.6 Albumin 3.6 Globulin 4.0 Lipase 78 Urine Test Negative Radiography Diagnostic Testing: Clinical Impression(s) from Imaging Studies Abdomen/Pelvis CT 10/05/22 11:01 IMPRESSION: Degenerative follicle in the right ovary. Enlarged fibroid uterus. Electronically Signed: Abe Bryan MD at 13:08 EST , Gallbladder Ultrasound 10/05/22 14:23 IMPRESSION: Normal right upper quadrant ultrasound examination. Electronically Signed: Abe Bryan MD at 15:17 EST , Discharge Plan Triage Chief Complaint: Abd Pain ED Provider: Cesar,Tal Dx/Rx/DC Orders Instructions: ED Abdominal Pain Unkn Cause Fem Prescriptions: No Action potassium 99 mg Tablet 99 mg PO DAILY Stand Alone Forms: ED Work / School Excuse Primary Care Provider: Aaron Stanley Referrals: Friend,DO Vidal [Med Staff - Active Staff] - Activity Restrictions/Additional Instructions: Please return if symptoms change or worsen. Please return if develop nausea vomiting cannot tolerate medicine by mouth. Please take Tylenol, ibuprofen every 6 hours as needed for pain control. Please start taking omeprazole (Nexium) daily. He can obtain this medicine [id number]. 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 Disposition Disposition: Home, Self Care Discharge Date/Time: 10/05/22 15:59
--- NOTE | 2022-10-05 11:01 | CT_ITS ---
STUDY: CT ABDOMEN AND PELVIS WITH CONTRAST REASON FOR EXAM: Female, 36 years old. Abdominal pain, epigastric -- IV PO Contrast RADIATION DOSAGE (If Supplied By Facility): CTDIvol = ( 16.63 ) mGy, DLP = ( 1014.10 ) mGycm TECHNIQUE: Transaxial images were obtained from the dome of the diaphragm to the symphysis pubis with oral contrast. Oral and amp; IV Gastrografin and amp; 100mL Isovue-300 was administered. Sagittal and coronal images were reconstructed. Individualized dose optimization techniques were used for this CT. COMPARISON: Comparison is made with prior study 06/25/2017. FINDINGS: Minimal increased markings are seen in the peripheral lateral aspect of the left lower lobe anteriorly. This may represent localized atelectasis. The visualized portions of the heart are within normal limits. Normal liver. Normal gallbladder and extrahepatic biliary system. Normal spleen. Normal pancreas. Normal bilateral adrenal glands. Normal right kidney. Normal left kidney. Normal visualized stomach. Normal small intestine. Normal colon. The patient is status post appendectomy. Normal abdominal aorta. Normal inferior vena cava. Normal retroperitoneum. Normal urinary bladder. Findings suggestive of an enlarged fibroid uterus. A degenerating follicle is seen in the right ovary. Prior bilateral tubal ligation. Normal abdominal wall. Straightening of the normal lumbar lordosis. CT/Abdomen/Pelvis WITH Contrast IMPRESSION: Degenerative follicle in the right ovary. Enlarged fibroid uterus. Electronically Signed: Abe Bryan MD at 13:08 EST ,
[2022-10-05] MEDS: 0.9% Normal Saline 1,000 ML 1000 ML IV (11:12)
[2022-10-05] MEDS: Ondansetron 4 MG/2 ML Vial IV (11:12)
[2022-10-05] MEDS: Morphine 4 MG/ML Syringe IV ×2 (11:12→14:31)
[2022-10-05 11:13] LABS: Absolute Neutrophil Count 4.4 X10^3/uL (2.0-7.7); Basophil# 0.06 X10^3/uL; Basophil% 0.7 % (0-1); Eosinophil# 0.12 X10^3/uL; Eosinophils% 1.5 % (0-5); Hematocrit 42.9 % (37-47); Hemoglobin 15.2 g/dL (12.0-15.0); Mean Corp Hgb Conc 35.4 g/dL (32-36); Mean Corpuscular Hgb 30.2 pg (27.0-32.0); Mean Corpuscular Volume 85.1 fL (81-99); Mean Platelet Vol. 9.7 fl (6.2-12.0); Monocyte# 0.56 X10^3/uL; NRBC Flagged by Analyzer 0 % (0-5); Neutrophil % 54.7 % (47-70); Platelet Count 294 K/mm3 (150-450); RBC Distribution Width CV 12.5 % (11.6-14.6); RBC Distribution Width SD 38.5 fl (35.1-43.9); Red Blood Count 5.04 M/mm3 (4.2-5.4); White Blood Count 8.1 K/mm3 (4.4-11.0)
[2022-10-05 11:16] LABS: Internal QC Validated? YES +Cl - CLEAR BKGD; Pregnancy, Urine Negative Negative
[2022-10-05 11:31] LABS: AST(SGOT) 17 U/L (15-37); Alanine Aminotransfer ALT/SGPT 21 U/L (13-56); Albumin, Serum 3.6 g/dL (3.2-5.0); Alkaline Phosphatase 96 U/L (45-117); Anion Gap 6 (5-15); BUN 6 mg/dL (7-18); BUN/Creat Ratio 8.9 RATIO (10-20); Bilirubin, Direct 0.09 mg/dL (0.00-0.30); Chloride 110 mmol/L (98-107); Creatinine, Serum 0.67 mg/dL (0.55-1.02); EST Glomerular Filtration Rate 105 mL/min (>60); Est Glom Filt Rate - Afr Amer 127 mL/min (>60); Estimated Creatinine Clearance 99.27 ml/min; Glucose 80 mg/dL (74-106); Lipase 78 U/L (73-393); Potassium 3.4 mmol/L (3.5-5.1); Protein, Total 7.6 g/dL (6.4-8.2); Sodium Level 140 mmol/L (136-145)
--- NOTE | 2022-10-05 14:23 | US_ITS ---
STUDY: ABDOMINAL ULTRASOUND - RIGHT UPPER QUADRANT REASON FOR VISIT: Female, 36 years old Right lower quadrant TTP TECHNIQUE: Ultrasound evaluation of the right upper quadrant was performed with real-time and static garnica-scale imaging. TECHNICAL QUALITY: Adequate. COMPARISON: Comparison is made with prior CT scan of pelvis done earlier in the day. FINDINGS: Liver: The liver measures 16.8 cm. There is normal echogenicity of the liver. The bile ducts are within normal limits. There is hepatic color flow. The direction of portal flow is hepatopetal. There is no demonstrated mass lesion. Gallbladder: Normal distended gallbladder. The gallbladder wall measures 2 mm. There is a negative sonographic Lopez''s sign. There is no pericholecystic fluid. There are no gallstones. Common Bile Duct (C.B.D.): The common bile duct measures 5 mm. Pancreas: Normal size of the head, body and tail of the pancreas. There is normal echogenicity of the pancreas. There is no demonstrated pancreatic mass or cyst. Right Kidney: Normal size of the right kidney. The right kidney measures 12.5 cm x 5.3 cm x 4.1 cm. Normal renal cortex. The right cortex measures 1.4 cm. There is no demonstrated renal mass or cyst. There is no right hydronephrosis. US/Gallbladder IMPRESSION: Normal right upper quadrant ultrasound examination. Electronically Signed: Abe Bryan MD at 15:17 EST ,
[2022-10-05 14:30] VITALS: PULSE 58; RESP 14; O2SAT 100
== END 2022-10-05 15:59 | disposition home or self-care (01) ==
PROVIDERS: Emergency Provider Emergency Medicine; PCP Family Medicine; Visit Provider Emergency Medicine
DX: R10.9 Unspecified abdominal pain (principal); R19.7 Diarrhea, unspecified; F17.210 Nicotine dependence, cigarettes, uncomplicated
CPT/HCPCS: 74177; 76705; 80048; 80076; 81025; 83690; 85025; 96361; 96374; 96375; 96376; 99283; Q9967; A4216; J2405

== ENCOUNTER → 2022-10-14 | Outpatient (CLI) | payer MEDICAID, SELFPAY ==
--- NOTE | 2022-10-14 08:09 | RAD_ITS ---
PROCEDURE: Air contrast Upper GI with Small Bowel Follow Through DATE OF EXAMINATION: 10/14/2022. INDICATION: Female, 36 years old. Diffuse abdominal pain. FLUOROSCOPY TIME (if supplied): (1:31) minutes/seconds. 22 images were obtained. TECHNIQUE: Radiographic and fluoroscopic images of the distal esophagus, stomach, and entire small intestine were obtained following the oral ingestion of barium. COMPARISON: None. 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 There are no abnormal calcifications or organomegaly demonstrated. The visualized osseous structures are normal. The esophagus is unremarkable. No evidence of obstruction. No mass lesion is seen. No gastroesophageal reflux. The stomach and duodenum are unremarkable. A single contrast small bowel follow through exam demonstrates the small bowel to have no evidence for stricture, ulceration or mass. The transit time is normal at 30 minutes. RAD/Upper GI/w Small Bowel IMPRESSION: 1. Unremarkable air contrast upper GI series and small bowel follow-through examination. Electronically Signed: Abe Bryan MD at 13:07 EST ,
== END | disposition home or self-care (01) ==
PROVIDERS: PCP Family Medicine; Referring Provider Family Medicine; Visit Provider Family Medicine
DX: R10.84 Generalized abdominal pain (principal)
CPT/HCPCS: 74246; 74248

== ENCOUNTER 2022-11-13 07:50 | Day surgery (SDC) | payer MEDICAID, SELFPAY ==
[2022-11-13] VITALS (7 sets, daily range): BP systolic 102–112; BP diastolic 60–87; PULSE 56–82; RESP 16; TEMP 36.2–37.1; O2SAT 98–100; BMI 30.2
[2022-11-13] MEDS: Lactated Ringers 1,000 ML 15 ML IV (08:30)
--- NOTE | 2022-11-13 09:35 | PCM.HP.BLA ---
History and Physical Date of Admission: 11/13/22 Intake Vital Signs ? 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 Is patient in pain?: No Allergies hydrocodone [From Vicodin] Allergy (Verified 10/15/22 14:56) Swellingmetronidazole [From Flagyl] Allergy (Verified 10/15/22 14:56) Hivescodeine Adverse Reaction (Verified 10/15/22 14:56) Swellingketorolac tromethamine [From Toradol] Adverse Reaction (Verified 10/15/22 14:56) Swellingorphenadrine citrate [From Norflex] Adverse Reaction (Verified 10/15/22 14:56) Swelling Medications meloxicam 15 mg tablet 15 mg PO DAILY 10/06/22 [History Confirmed 10/15/22] potassium 75 mg tablet mg PO 10/06/22 [History Confirmed 10/15/22] omeprazole 40 mg capsule,delayed release 40 mg PO DAILY #60 caps 10/15/22 [Rx] sucralfate 1 gram tablet (Carafate) 1 g PO QACHS #60 tabs 10/15/22 [Rx] PFSH Medical History? Abnormal CT scan Diarrhea Epigastric pain History of steroid therapy Marijuana use Right carpal tunnel syndrome Smoker Wears dentures Wears glasses Surgical History? Hx of appendectomy Hx of section Family History? Mother Cancer ?? ? ovarian cancerBrother DiabetesFather CVA (cerebral vascular accident) Social History? household members:? spouse and children Smoking Status:? Current every day smoker tobacco type: cigarettes alcohol intake:? current alcohol intake frequency: a few times a week HPI HPI HPI: The patient is a 36-year-old female with epigastric pain.? She reports that happens all the time but is worse when she eats.? She says she tried 2-week course of Nexium but it did not help.? She has had a CT scan and an upper GI study which were normal.? She also had a gallbladder ultrasound which was normal.? She has never had a colonoscopy.? She is never had an EGD.? She reports occasional blood in her stool. ROS General General: No weight change, appetite, fatigue, colon cancer, breast cancer or weakness HEENT HEENT: No difficulty swallowing, eye injury, eye surgery, swollen glands or hoarseness Endo Endocrine: No thyroid disease, diabetes mellitus, thyroid cancer, Hair loss, heat intolerance or cold intolerance Skin Skin: No rash or changing moles Breast Breast: No left breast lump, right breast lump, nipple discharge, breast pain, abnormal mammogram, abnormal US or breast enlargement Musc Musculoskeletal: No back problems, arthritis, rheumatoid arthritis, gout or joint pain Cardio Cardiovascular: No murmur, pacemaker, heart disease, atrial fibrillation, high blood pressure, heart attack, heart stent, palpitations, shortness of breat with exertion or chest pain Psych Psychiatric: No depression, anxiety or hearing voices Resp Respiratory: No shortness of breath, No sleep apnea, No cough, No COPD, No asthma, No emphysema and No wheezing Gastro Gastrointestinal: Yes abdominal pain, No nausea or vomiting, No diarrhea, Yes constipation, Yes blood in stool, No acid reflux, Yes hemorrhoids, No ulcers, No gallbladder problem and No black,tarry stools Arias Hematologic: No blood thinners, No blood disorders, No bleeding, No anemia and No blood clots Neuro Neurologic: No system reviewed and no additional complaints, except as documented, No as per HPI, No abnormal gait, No abnormal hearing, No abnormal movements, No abnormal speech, No behavioral changes, No burning sensations, No confusion, No convulsions, No disequilibrium, No dizziness, No localized weakness, No frequent falls, No headache(s), No lack of coordination, No loss of vision, No memory loss, No numbness, No other visual disturbances, No radicular pain, No restless legs, No sensory deficit, No syncope, No tingling, No tremor(s), No weakness and No other Exam Const General: cooperative Orientation: alert and oriented x3 HENMT Head: normal to inspection Neck Neck: normal visual inspection and full ROM Chest Chest palpation & inspection: normal inspection of the chest Resp Effort & Inspection: normal respiratory effort Auscultation: clear to auscultation bilaterally Cardio Rate: regular rate Rhythm: regular rhythm GI Inspection: non-distended Palpation: soft and nontender Skin General: no rashes or lesions noted Neuro General: patient alert and patient oriented x3 Extrem General: full ROM Psych Appearance: grossly normal Mental Status: mental status grossly normal Assessment and Plan Assessment and Plan (1) Epigastric pain: ?Status:?Acute ?Plan: Patient is complaining of a lot of epigastric pain and also reports occasional blood in her stool.? She was sent here for EGD and colonoscopy.? She has never had either before.? She has had a CT scan, ultrasound, upper GI which were all normal.? I will start her on PPI and Carafate until the scope and I will plan on EGD and colonoscopy. I explained endoscopy in detail to the patient.? I explained the risks including but not limited to stroke or heart attack with anesthesia, perforation of the GI tract, bleeding, infection.? I explained that any of these could necessitate further emergency surgery.? The patient understands and all questions were answered sufficiently.? The patient wishes to proceed with procedure. Dennis Trent MD Pager: [facility] [address] [place] [address], [address] [place] [address] Office: I have examined the patient and the H&P has been reviewed. There are no clinical changes since date of exam.
--- NOTE | 2022-11-13 09:45 | IMM_PTH ---
PATIENT: LEROY GREGORIO LOC: EN U#:[id number] AGE/SX: 36/F ROOM: RE11/13/[address]: Dr. Dennis Trent MD : 1985 BED: DIS: 11/13/2022 SPEC #: [id number] RECD: 11/13/22 14:26 STATUS: ARACELY REQ #: [id number] REED: 11/13/22 09:[address]: Dennis Trent DEPT: IMMUNOHISTOCHEMISTRY RECD BY: Ayleen Westfall ENTERED: 11/13/22 14:27 SP TYPE: IMMUNO OTHR DR: Dr. Aaron Stanley MD Tissues: A - Stomach, NOS Procedures: H Pylori (initial) PHYSICIAN & INSTITUTION [place] [address] SPECIMEN INFORMATION: Tissue Source: A ? Antrum biopsy Clinical Info: Epigastric pain Specimen Number: [id number] CPT code: 70249 METHODOLOGY: Deparaffinized sections of prefer/formalin-fixed tissue or PAP/DQ stained slides are incubated with monoclonal/polyclonal antibodies/oligonucleotide probes. Localization is made via biotin free immunoperoxidase method. Appropriate controls are performed and reacted as expected. Results on target cell population are indicated in the following table: RESULTS: ANTIBODY / CLONE RESULT Block A H Pylori (polyclonal) negative These tests were developed and their performance characteristics determined by [facility]. They may not have been cleared or approved by the U.S. Food and Drug Administration. The FDA has determined that such clearance or approval is not necessary. The above immunohistochemical/dualISH markers are ordered and reviewed by the Pathologist. INTERPRETATION: A. Antrum, biopsy: Negative for Helicobacter pylori organisms. SJ:bipin 11/16/2022
--- NOTE | 2022-11-13 09:45 | EGD_PTH ---
PATIENT: LEROY GREGORIO LOC: EN U#:[id number] AGE/SX: 36/F ROOM: RE11/13/[address]: Dr. Dennis Trent MD : 1985 BED: DIS: 11/13/2022 SPEC #: [id number] RECD: 11/13/22 10:23 STATUS: ARACELY REDawson #: [id number] REED: 11/13/22 09:[address]: Dennis Trent DEPT: SURGICAL PATHOLOGY RECD BY: Nara Caceres ENTERED: 11/13/22 11:25 SP TYPE: EGD BIOPSY OT DR: Dr. Aaron Stanley MD Tissues: A - Gastric mucous membrane B - Transverse colon C - Descending colon D - Rectum, NOS Procedures: Surgery Specimen Level IV HEADER OPERATION: Colonoscopy, EGD ([facility]), biopsy, polypectomy PRE-OP DIAGNOSIS: Epigastric pain TISSUE SUBMITTED: A ? Antrum biopsy for histo and H. pylori, B ? Transverse polyp, C ? Descending polyp, D ? Rectum polyp MICROSCOPIC DIAGNOSIS A. Antrum, biopsy: Mild gastritis. See microscopic description and comment. B. Transverse colon polyp, polypectomy: Fragments of tubular adenoma. C. Descending colon polyp, polypectomy: Tubular adenoma. D. Rectum polyp, biopsy: Tubular adenoma. SJ:rg 11/16/2022 COMMENT A. The results of immunohistochemistry for Helicobacter pylori will be reported separately ([id number]). MICROSCOPIC DESCRIPTION Slides are reviewed. A. The specimen shows fragments of gastric mucosa with chronic inflammatory cell infiltrates in the lamina propria consisting of lymphocytes and plasma cells, consistent with mild chronic gastritis. GROSS DESCRIPTION A - Received in fixative is one container labeled with the patient's name and designated antrum biopsy. The specimen consists of multiple irregular fragments of light donahue soft tissue that in aggregate measure 1.0 x 0.2 x 0.1 cm. The specimen is totally submitted in one cassette. B - Received in fixative is one container labeled with the patient's name and designated transverse polyp. The specimen consists of two irregular fragments of light donahue soft tissue that in aggregate measure 0.7 x 0.7 x 0.3 cm. The specimen is totally submitted in one cassette. C - Received in fixative is one container labeled with the patient's name and designated descending polyp. The specimen consists of a donahue-pink polyp measuring 0.5 x 0.5 x 0.5 cm. The presumed base is inked. The polyp is bisected and submitted entirely in one cassette. D - Received in fixative is one container labeled with the patient's name and designated rectal polyp. The specimen consists of one irregular fragment of light donahue soft tissue that measures 0.3 x 0.3 x 0.2 cm. The specimen is totally submitted in one cassette. / SJ:rg 11/13/2022 TC:1 CPT: 34020 x4
--- NOTE | 2022-11-13 10:06 | OP.EGD_ITS ---
Patient Name: Lexie Vargas Procedure Date: 11/13/2022 9:38 AM Date of : 1985 Age: 36 Procedure: Upper GI endoscopy Indications: Epigastric abdominal pain, Recent gastrointestinal bleeding Providers: Dennis Trent MD Medicines: Monitored Anesthesia Care Patient Profile: This is a 36 year old female. Refer to note in patient chart for documentation of history and physical. Complications: No immediate complications. Estimated blood loss: Minimal. Procedure: Pre-Anesthesia Assessment: - Prior to the procedure, a History and Physical was performed, and patient medications and allergies were reviewed. The patient's tolerance of previous anesthesia was also reviewed. The risks and benefits of the procedure and the sedation options and risks were discussed with the patient. All questions were answered, and informed consent was obtained. Prior Anticoagulants: The patient has taken no previous anticoagulant or antiplatelet agents. After reviewing the risks and benefits, the patient was deemed in satisfactory condition to undergo the procedure. After obtaining informed consent, the endoscope was passed under direct vision. Throughout the procedure, the patient's blood pressure, pulse, and oxygen saturations were monitored continuously. The Endoscope was introduced through the mouth, and advanced to the second part of duodenum. The upper GI endoscopy was accomplished without difficulty. The patient tolerated the procedure well. Scope In: 9:46:25 AM Scope Out: 9:48:46 AM Total Procedure Duration Time 0 hours 2 minutes 21 seconds Findings: The esophagus was normal. The stomach was normal. The examined duodenum was normal. Biopsies were taken with a cold forceps in the gastric antrum for Helicobacter pylori testing. Impression: - Normal esophagus. - Normal stomach. - Normal examined duodenum. - Biopsies were taken with a cold forceps for Helicobacter pylori testing. Recommendation: - Discharge patient to home. - Resume previous diet. - Continue present medications. - Await pathology results. Procedure Code(s): --- Professional --- 89687, Esophagogastroduodenoscopy, flexible, transoral; with biopsy, single or multiple Diagnosis Code(s): --- Professional --- R10.13, Epigastric pain K92.2, Gastrointestinal hemorrhage, unspecified CPT copyright 2017 [employer]. All rights reserved. The codes documented in this report are preliminary and upon supervisor scrap preparation review may be revised to meet current compliance requirements. Dennis Trent MD 11/13/2022 10:06:12 AM This report has been signed electronically. Number of Addenda: 0 Note Initiated On: 11/13/2022 9:38 AM
--- NOTE | 2022-11-13 10:07 | OP.CCLET_ITS ---
11/13/2022 Aaron Stanley [address] [place] [address] Re : Upper GI endoscopy procedure for Lexie Vargas Dear Dr. Stanley This procedure was performed on Sunday, November 13, 2022. My impressions and recommendations are as follows: Impressions : - Normal esophagus. - Normal stomach. - Normal examined duodenum. - Biopsies were taken with a cold forceps for Helicobacter pylori testing. Recommendations : - Discharge patient to home. - Resume previous diet. - Continue present medications. - Await pathology results. My findings are described in the full procedure note, which is enclosed. If I can be of further assistance, please feel free to contact me at Doctor phone number(s): , Work: . Sincerely, Dennis Trent MD 11/13/2022 10:06:12 AM This report has been signed electronically.
--- NOTE | 2022-11-13 10:10 | OP.COLON_ITS ---
Patient Name: Lexie Vargas Procedure Date: 11/13/2022 9:50 AM Date of : 1985 Age: 36 Procedure: Colonoscopy Indications: Rectal bleeding Providers: Dennis Trent MD Medicines: Monitored Anesthesia Care Patient Profile: This is a 36 year old female. Refer to note in patient chart for documentation of history and physical. Last Colonoscopy: none. The patient's first colonoscopy is today. Complications: No immediate complications. Procedure: Pre-Anesthesia Assessment: - Prior to the procedure, a History and Physical was performed, and patient medications and allergies were reviewed. The patient's tolerance of previous anesthesia was also reviewed. The risks and benefits of the procedure and the sedation options and risks were discussed with the patient. All questions were answered, and informed consent was obtained. Prior Anticoagulants: The patient has taken no previous anticoagulant or antiplatelet agents. After reviewing the risks and benefits, the patient was deemed in satisfactory condition to undergo the procedure. After I obtained informed consent, the scope was passed under direct vision. Throughout the procedure, the patient's blood pressure, pulse, and oxygen saturations were monitored continuously. The colonoscope was introduced through the anus and advanced to the cecum, identified by appendiceal orifice and ileocecal valve. The colonoscopy was performed without difficulty. The patient tolerated the procedure well. The quality of the bowel preparation was good. Scope In: 9:50:56 AM Scope Withdrawal Time 0 hours 5 minutes 39 seconds Scope Out: 10:03:16 AM Total Procedure Duration Time 0 hours 12 minutes 20 seconds Findings: Three polyps were found in the rectum, descending colon and transverse colon. The polyps were medium in size. These polyps were removed with a hot snare. Resection and retrieval were complete. The exam was otherwise without abnormality on direct and retroflexion views. Impression: - Three medium polyps in the rectum, in the descending colon and in the transverse colon, removed with a hot snare. Resected and retrieved. - The examination was otherwise normal on direct and retroflexion views. Recommendation: - Discharge patient to home. - Resume previous diet. - Continue present medications. - Await pathology results. - Repeat colonoscopy in 3 years for surveillance of multiple polyps. Procedure Code(s): --- Professional --- 71450, Colonoscopy, flexible; with removal of tumor(s), polyp(s), or other lesion(s) by snare technique Diagnosis Code(s): --- Professional --- K62.1, Rectal polyp D12.4, Benign neoplasm of descending colon D12.3, Benign neoplasm of transverse colon (hepatic flexure or splenic flexure) K62.5, Hemorrhage of anus and rectum CPT copyright 2017 [employer]. All rights reserved. The codes documented in this report are preliminary and upon chemistry department chair review may be revised to meet current compliance requirements. Dennis Trent MD 11/13/2022 10:09:53 AM This report has been signed electronically. Number of Addenda: 0 Note Initiated On: 11/13/2022 9:50 AM
--- NOTE | 2022-11-13 10:11 | OP.CCLET_ITS ---
11/13/2022 Aaron Stanley [address] [place] [address] Re : Colonoscopy procedure for Lexie Vargas Dear Dr. Stanley This procedure was performed on Sunday, November 13, 2022. My impressions and recommendations are as follows: Impressions : - Three medium polyps in the rectum, in the descending colon and in the transverse colon, removed with a hot snare. Resected and retrieved. - The examination was otherwise normal on direct and retroflexion views. Recommendations : - Discharge patient to home. - Resume previous diet. - Continue present medications. - Await pathology results. - Repeat colonoscopy in 3 years for surveillance of multiple polyps. My findings are described in the full procedure note, which is enclosed. If I can be of further assistance, please feel free to contact me at Doctor phone number(s): , Work: . Sincerely, Dennis Trent MD 11/13/2022 10:09:53 AM This report has been signed electronically.
== END 2022-11-13 10:53 | disposition home or self-care (01) ==
LOC: EN 07:51 → AC 07:52
PROVIDERS: PCP Family Medicine; Referring Provider Family Medicine; Visit Provider Surgery
PROC: 0DJD8ZZ Inspection of Lower Intestinal Tract, Via Natural or Artificial Opening Endoscopic (ICD-10-PCS; CPT 45378; principal; 2022-11-13 09:40)
DX: D12.3 Benign neoplasm of transverse colon (principal); F17.210 Nicotine dependence, cigarettes, uncomplicated; K29.70 Gastritis, unspecified, without bleeding; D12.4 Benign neoplasm of descending colon; D12.8 Benign neoplasm of rectum; K21.9 Gastro-esophageal reflux disease without esophagitis
CPT/HCPCS: 45385; 43239; 88305; 88342; J7120; J2405

== ENCOUNTER → 2023-01-01 | Outpatient (CLI) | payer MEDICAID, SELFPAY ==
[2023-01-01 11:19] LABS: Erythrocyte Sedimentation Rate 23 mm/hr (0-30)
[2023-01-01 11:21] LABS: Absolute Lymphocyte Count 3.08 X10^3/uL (0.83-4.51); Absolute Neutrophil Count 4.5 X10^3/uL (2.0-7.7); Basophil# 0.06 X10^3/uL; Basophil% 0.7 % (0-1); Eosinophil# 0.17 X10^3/uL; Hematocrit 45.2 % (37-47); Hemoglobin 15.2 g/dL (12.0-15.0); Lymphocyte # 3.08 X10^3/ul (0.83-4.51); Lymphocyte % 36.2 % (19-41); Mean Corp Hgb Conc 33.6 g/dL (32-36); Mean Corpuscular Hgb 29.3 pg (27.0-32.0); Mean Corpuscular Volume 87.1 fL (81-99); Mean Platelet Vol. 9.2 fl (6.2-12.0); Monocyte# 0.65 X10^3/uL; Monocyte% 7.6 % (0-10); NRBC Flagged by Analyzer 0 % (0-5); Neutrophil # 4.52 X10^3/uL (2.7-7.7); Neutrophil % 53.1 % (47-70); Platelet Count 340 K/mm3 (150-450); RBC Distribution Width CV 12.5 % (11.6-14.6); RBC Distribution Width SD 39.5 fl (35.1-43.9); Red Blood Count 5.19 M/mm3 (4.2-5.4); White Blood Count 8.5 K/mm3 (4.4-11.0)
[2023-01-01 11:52] LABS: ALB/GLOB Ratio 0.9 RATIO (0.9-2.4); AST(SGOT) 16 U/L (15-37); Alanine Aminotransfer ALT/SGPT 25 U/L (13-56); Albumin, Serum 3.7 g/dL (3.2-5.0); Alkaline Phosphatase 106 U/L (45-117); Anion Gap 2 (5-15); BUN 6 mg/dL (7-18); BUN/Creat Ratio 8.7 RATIO (10-20); Calcium,Total 9.2 mg/dL (8.5-10.1); Chloride 108 mmol/L (98-107); Creatinine, Serum 0.69 mg/dL (0.55-1.02); EST Glomerular Filtration Rate 101 mL/min (>60); Est Glom Filt Rate - Afr Amer 123 mL/min (>60); Globulin 4.1 g/dL (2.2-4.2); Glucose 81 mg/dL (74-106); LDH 189 U/L (84-246); Potassium 3.2 mmol/L (3.5-5.1); Protein, Total 7.8 g/dL (6.4-8.2); Sodium Level 135 mmol/L (136-145)
[2023-01-04 14:08] LABS: Endomysial Antibody IgA Negative (Negative); Immunoglobulin A 260 mg/dL (87-352); t-Transglutaminase IgA <2 U/mL (0-3)
[2023-01-04 16:09] LABS: Anti-Centromere B Ab <0.2 AI (0.0-0.9); Anti-Chromatin <0.2 AI (0.0-0.9); Anti-Jo <0.2 AI (0.0-0.9); Anti-Scleroderma-70 AB <0.2 AI (0.0-0.9); Anti-dsDNA Ab 8 IU/mL (0-9); RNP Ab <0.2 AI (0.0-0.9); SJOGREN'S Anti-SS-A test < 0.2 AI (0.0-0.9); SJOGREN'S Anti-SS-B test < 0.2 AI (0.0-0.9); Smith Ab <0.2 AI (0.0-0.9)
[2023-01-06 02:07] LABS: Albumin 3.6 g/dL (2.9-4.4); Alpha-1-Globulins 0.3 g/dL (0.0-0.4); Alpha-2-Globulins 0.9 g/dL (0.4-1.0); Cytoplasmic Ab (C-ANCA) <1:20 titer (Neg:<1:20); Gamma Globulin 1.2 g/dL (0.4-1.8); Immunoglobulin A 262 mg/dL (87-352); Immunoglobulin E 15 IU/mL (6-495); Immunoglobulin G 1101 mg/dL (586-1602); Immunoglobulin M 95 mg/dL (26-217); PROEL- TOTAL PROTEIN 6.9 g/dL (6.0-8.5); Perinuclear Ab (P-ANCA) <1:20 titer (Neg:<1:20)
== END | disposition home or self-care (01) ==
PROVIDERS: PCP Family Medicine; Referring Provider Internal Medicine Gastroenterology; Visit Provider Internal Medicine Gastroenterology
DX: R10.9 Unspecified abdominal pain (principal)
CPT/HCPCS: 36415; 80053; 82784; 82785; 83516; 83615; 84165; 85025; 85652; 86225; 86235; 86255; 86256; 86334

== ENCOUNTER → 2023-01-05 | Outpatient (CLI) | payer MEDICAID, SELFPAY ==
[2023-01-11 03:06] LABS: Calprotectin, Stool 19 ug/g (0-120)
[2023-01-11 19:06] LABS: Pancreatic Elastase, Fecal < 50 (>200)
== END | disposition home or self-care (01) ==
LOC: LABSPEC 09:24
PROVIDERS: PCP Family Medicine; Referring Provider Internal Medicine Gastroenterology; Visit Provider Internal Medicine Gastroenterology
DX: R10.9 Unspecified abdominal pain (principal); K58.9 Irritable bowel syndrome, unspecified
CPT/HCPCS: 82653; 83630; 83993; 87177; 87209; 87329; 87493; 87506

== ENCOUNTER → 2023-01-14 | Outpatient (CLI) | payer MEDICAID, SELFPAY ==
[2023-01-14 10:51] LABS: CRP 3.61 mg/L (0.0-3.0); Magnesium 2.3 mg/dL (1.6-2.6); Potassium 3.6 mmol/L (3.5-5.1)
== END | disposition home or self-care (01) ==
PROVIDERS: PCP Family Medicine; Visit Provider Internal Medicine Gastroenterology
DX: R10.9 Unspecified abdominal pain (principal)
CPT/HCPCS: 36415; 83735; 84132; 86140

== ENCOUNTER 2023-02-12 07:54 | Emergency (ER) | payer MEDICAID, SELFPAY ==
[2023-02-12 07:55] VITALS: BP 142/67; PULSE 62; RESP 14; TEMP 36.6; O2SAT 99; BMI 30.4
--- NOTE | 2023-02-12 08:11 | EX.ED.DYSGE1 ---
HPI History of Present Illness Chief Complaint: Rash Informant: patient Narrative Narrative: Pruritic erythematous rash for the past week, worse in the past couple days, now burning because she is scratching it so bad on her right leg. It is on her arms and legs. She has nothing on her back or trunk or face. No systemic symptoms. She has Crohn's and has been on doxycycline for 1 month, she only has 2 days left. Other than that she is on pancreatic enzymes, she is scheduled to have a scope next week with Dr. Cuevas. [facility] Medical History Abnormal CT scan Diarrhea Epigastric pain Marijuana use Right carpal tunnel syndrome Smoker Wears dentures Wears glasses Home Medications meloxicam 15 mg tablet 15 mg PO DAILY 10/06/22 [History Last Taken Unknown] potassium 75 mg tablet 75 mg PO DAILY 10/06/22 [History Last Taken Unknown] omeprazole 40 mg capsule,delayed release 40 mg PO DAILY #60 caps 10/15/22 [Rx Last Taken Unknown] sucralfate 1 gram tablet (Carafate) 1 g PO QACHS #60 tabs 10/15/22 [Rx Last Taken Unknown] potassium chloride 10 mEq tablet,extended release 10 meq PO DAILY #3 tabs 01/01/23 [Rx Last Taken Unknown] sruzxp-qpljvcvy-sxkcwzb 40,000-126,000-168,000 unit capsule, delay rel (Zenpep) See Rx Instructions PO .COMPLEX #320 caps 01/12/23 [Rx Last Taken Unknown] prednisone 20 mg tablet 40 mg PO DAILY #12 TABLETS 02/12/23 [Rx Last Taken Unknown] Allergy/AdvReac Type Severity Reaction Status Date / Time hydrocodone [From Vicodin] Allergy Swelling Verified 02/12/23 07:55 metronidazole [From Flagyl] Allergy Hives Verified 02/12/23 07:55 codeine AdvReac Swelling Verified 02/12/23 07:55 ketorolac tromethamine AdvReac Swelling Verified 02/12/23 07:55 [From Toradol] orphenadrine citrate AdvReac Swelling Verified 02/12/23 07:55 [From Norflex] Family History Mother Cancer ovarian cancer Brother Diabetes Father CVA (cerebral vascular accident) Surgical History (Updated 11/06/22 @ 14:33 by Nia Haywood) History of carpal tunnel surgery of right wrist Hx of appendectomy Hx of section Social History household members: spouse and children Smoking Status: Current every day smoker tobacco type: cigarettes alcohol intake: current alcohol intake frequency: a few times a week ROS ROS ED Constitutional Constitutional ED: Denies chills or fever(s) Eyes Eyes: Denies change in vision or diplopia ENT ENT ED: Denies rhinorrhea or sore throat Cardiovascular Cardiovascular: Denies chest pain or palpitations Respiratory/Chest Respiratory/Chest: Denies cough or dyspnea Gastrointestinal Gastrointestinal: Denies abdominal pain, diarrhea, nausea or vomiting Genitourinary Genitourinary ED: Denies dysuria or hematuria Musculoskeletal Musculoskeletal: Denies back pain or neck pain Integumentary Reports pruritus and rash; Denies abscess Neurologic Neurologic: Denies headache(s), paresthesias or weakness Psychiatric Psychiatric: Denies anxiety or suicidal thoughts EXAM Physical Exam Const Vital Signs: 02/12/23 07:55 Temperature 98 F Temperature Source Temporal Pulse Rate 62 Respiratory Rate 14 Blood Pressure 142/67 H Blood Pressure Mean 92 Pulse Ox 99 Oxygen Delivery Method Room Air Positive well nourished and well developed General Appearance ED: well developed and NAD HEENT Reports moist mucous membranes normocephalic and atraumatic Eyes PERRL and EOMs intact bilaterally Neck full ROM and supple Resp normal respiratory effort GI Inspection: Negative for abdominal distention Back/Spine General Back: other FROM Extremity normal to inspection General Extremety ED: Negative for edema, pulses abnormal or tenderness General Extremity: Negative for edema or pulses abnormal Neuro oriented x3, CN's II-XII intact bilaterally and no sensory deficits noted Sensorium / Orientation: awake and alert Motor Exam: strength 5/5 throughout Psych mental status grossly normal Skin no wounds Skin Narrative: Nontender erythematous patchy rash on extensor surfaces of lower legs, medial/posterior aspect of both upper arms and volar forearms, it is blanching and raised in most areas, there are couple vesicle formations in the right rodriguez. No bullae, no petechiae. MDM MDM MDM Narrative Medical decision making narrative: I suspect this is either an allergic or photosensitivity reaction to the doxycycline which needs to be discontinued especially since she only has 2 days left. She does not appear to have Rainey-London's syndrome or TEN, she is well-appearing, clinically and hemodynamically stable. Question is with regards to the GI issues and the fact that she is getting ready to have a scope, if I put her on prednisone to help with all of the itching would it interfere with any of the diagnostics that GI is getting ready to do; I discussed with Dr. Cuevas. He was okay with the patient being on prednisone and agree with plan. Discharge Plan Triage Chief Complaint: Rash ED Provider: Juma Menjivar Dx/Rx/DC Orders Clinical Impression: Allergic drug rash Instructions: ED Drug Reaction, Other Prescriptions: New prednisone 20 mg tablet 40 mg PO DAILY Qty: 12 0RF Continued meloxicam 15 mg tablet 15 mg PO DAILY potassium 75 mg tablet 75 mg PO DAILY potassium chloride 10 mEq tablet extended release 10 meq PO DAILY Qty: 3 0RF sucralfate [Carafate] 1 gram tablet 1 g PO QACHS Qty: 60 0RF omeprazole 40 mg capsule,delayed release(DR/EC) 40 mg PO DAILY Qty: 60 1RF Zenpep 40,000-126,000- 168,000 unit capsule,delayed release(DR/EC) See Rx Instructions PO .COMPLEX Qty: 320 11RF Rx Instructions: take 1-2 with snacks and 2-3 with meals. EPI K86.81 Discontinued doxycycline hyclate 100 mg capsule 100 mg PO BID Qty: 60 0RF Rx Instructions: take one two times a day for 30 days Primary Care Provider: Aaron Stanley Referrals: Aaron Stanley MD [Primary Care Provider] - Vidal Cuevas DO [Med Staff - Active Staff] - Keep Leilani appointment Disposition Disposition: Home, Self Care
== END 2023-02-12 08:52 | disposition home or self-care (01) ==
LOC: ED 08:22
PROVIDERS: Emergency Provider Emergency Medicine; PCP Family Medicine; Visit Provider Emergency Medicine
DX: L27.0 Generalized skin eruption due to drugs and medicaments taken internally (principal); K50.90 Crohn's disease, unspecified, without complications; T36.4X5A Adverse effect of tetracyclines, initial encounter; F17.210 Nicotine dependence, cigarettes, uncomplicated; Z79.1 Long term (current) use of non-steroidal anti-inflammatories (NSAID); Z79.2 Long term (current) use of antibiotics; Z79.899 Other long term (current) drug therapy
CPT/HCPCS: 99282

== ENCOUNTER → 2023-03-18 | Outpatient (CLI) | payer MEDICAID, SELFPAY ==
[2023-03-18 12:51] LABS: ALB/GLOB Ratio 0.8 RATIO (0.9-2.4); AST(SGOT) 16 U/L (15-37); Alanine Aminotransfer ALT/SGPT 17 U/L (13-56); Albumin, Serum 3.5 g/dL (3.2-5.0); Alkaline Phosphatase 109 U/L (45-117); Anion Gap 7 (5-15); BUN 6 mg/dL (7-18); BUN/Creat Ratio 8.3 RATIO (10-20); Calcium,Total 9.2 mg/dL (8.5-10.1); Chloride 106 mmol/L (98-107); Creatinine, Serum 0.72 mg/dL (0.55-1.02); EST Glomerular Filtration Rate 96 mL/min (>60); Est Glom Filt Rate - Afr Amer 116 mL/min (>60); Globulin 4.3 g/dL (2.2-4.2); Glucose 77 mg/dL (74-106); Magnesium 2.3 mg/dL (1.6-2.6); Potassium 3.4 mmol/L (3.5-5.1); Protein, Total 7.8 g/dL (6.4-8.2); Sodium Level 139 mmol/L (136-145)
== END | disposition home or self-care (01) ==
LOC: MFPLAB 10:09
PROVIDERS: PCP Family Medicine; Visit Provider Family Medicine
DX: K57.10 Diverticulosis of small intestine without perforation or abscess without bleeding (principal); E87.6 Hypokalemia
CPT/HCPCS: 36415; 80053; 83735

== ENCOUNTER → 2023-06-11 | Outpatient (CLI) | payer MEDICAID, SELFPAY ==
[2023-06-11 10:17] LABS: ALB/GLOB Ratio 0.8 RATIO (0.9-2.4); AST(SGOT) 14 U/L (15-37); Alanine Aminotransfer ALT/SGPT 24 U/L (13-56); Albumin, Serum 3.5 g/dL (3.2-5.0); Alkaline Phosphatase 119 U/L (45-117); Anion Gap 4 (5-15); BUN 7 mg/dL (7-18); BUN/Creat Ratio 9.5 RATIO (10-20); Chloride 107 mmol/L (98-107); Creatinine, Serum 0.74 mg/dL (0.55-1.02); EST Glomerular Filtration Rate 94 mL/min (>60); Est Glom Filt Rate - Afr Amer 114 mL/min (>60); Globulin 4.2 g/dL (2.2-4.2); Glucose 82 mg/dL (74-106); Magnesium 2.4 mg/dL (1.6-2.6); Potassium 3.8 mmol/L (3.5-5.1); Protein, Total 7.7 g/dL (6.4-8.2); Sodium Level 137 mmol/L (136-145)
== END | disposition home or self-care (01) ==
LOC: LAB 09:12
PROVIDERS: PCP Family Medicine; Referring Provider Internal Medicine Gastroenterology; Visit Provider Internal Medicine Gastroenterology
DX: R10.13 Epigastric pain (principal)
CPT/HCPCS: 36415; 80053; 83735

== ENCOUNTER 2024-03-28 15:00 | Outpatient (RCR) | payer MEDICAID, SELFPAY ==
--- NOTE | 2024-03-22 18:45 | HP.PTEVAL ---
Patient's Visit Information Visit Information Visit Information: LEROY GREGORIO is a 38 year old F referred to Physical Therapy by Dr. Aaron Stanley MD with a diagnosis of Lumbar radiculopathy. Date of Evaluation: 03/22/24 Physical Therapist: Kike Vazquez DPT Visit Plan Frequency: 3x /Week Duration: 6 Weeks Plan: Start with reduction in symptoms with TENS and ice with neutral spine positioning, as symptoms progress initiate extension progression to further increase lumbar ROM. IF not going well, I would suggest attempting aquatic PT to allow for better tolerance. Subjective Subjective: Pt. is here today for her initial evaluation with diagnosis of R sided sciatica. Pt. reports a few weeks ago she was going up and down a ladder and the next morning. Mornings are painful, standing is better than sitting. Pt. has tried some exercises, but has not helped much. Pt. is currently sleeping on her back and L side. Pt. reports unable to lie on her R side. No myotomal weakness noted. Pt. is still working, but is having a lot of pain with it. Pt. reports intense pain down her RLE down to her foot. Pt. is hopeful to reduce symptoms in order to work and complete and recreational activities without limitations. Pain R leg: Pain Intensity (Out of 10): 8 Pain Intensity Range: 4 and 10 R side of lumbar spine: Pain Intensity (Out of 10): 8 Pain Intensity Range: 4 and 10 Objective Objective: POSTURE: Pt. has a slight L sided lateral shift with upper trunk correction. Slight flexed posture throughout. PALPATION: Pt. has tenderness throughout bilateral erector spinae. Pt. has marked pain with spring testing to L3-L5 with no marked hypomobility noted. NEURO: Pt. has normal DTR of B patellar and achilles. Pt. does have marked decreased sensation at R lateral calf down to ankle. Pt. is able to rise on heels and toes without issues. ROM: LUMBAR SPINE: flexion mod loss increase worse, ext min loss decrease better, SB R mod loss increase NW, SB L increase NW min loss, rotation min loss bilat increase NW. Pt. has decreased HS length bilaterally. MMT: Pt. has some weakness in her RLE; RLE: ankle 5/5 throughout; knee: ext 7.8# increase NW, flexion 7.1# increase NW. LLE: ankle 5/5 throughout; knee: ext 31.#, flexion 23.3#. Special Tests L/S Slump test left side: Negative L/S Slump test right side: Positive L/S Left Straight Leg Raise: Negative L/S Right Straight Leg Raise: Positive Lumbar Standing: Flexion - Mechanical Response: No effect Lumbar Standing: Flexion - Symptoms During Testing: Increases Lumbar Standing: Flexion - Symptoms After Testing: Worse Lumbar Standing: Extension - Mechanical Response: No effect Lumbar Standing: Extension - Symptoms During Testing: Decreases Lumbar Standing: Extension - Symptoms After Testing: No better Lumbar Standing: Right Side Glides - Mechanical Response: No effect Lumbar Standing: Right Side Weston - Symptoms During Testing: Increases Lumbar Standing: Right Side Weston - Symptoms After Testing: Worse Lumbar Standing: Left Side Weston - Mechanical Response: No effect Lumbar Standing: Left Side Weston - Symptoms During Testing: No effect Lumbar Standing: Left Side Weston - Symptoms After Testing: No effect Lumbar Lying: Flexion - Mechanical Response: No effect Lumbar Lying: Flexion - Symptoms During Testing: Decreases Lumbar Lying: Flexion - Symptoms After Testing: No better Lumbar Lying: Extension - Mechanical Response: No effect Lumbar Lying: Extension - Symptoms During Testing: Centralizing Lumbar Lying: Extension - Symptoms After Testing: Worse Comments:: Pt. had centralization, but was very painful Balance/Special Test Scores Oswestry Low Back Score: 7 Goals Goal 1:: LTG: Pt. to be I with HEP. Goal Time Frame: 4-6 Weeks Goal 2:: STG: Pt. to be able to sit for 30 min without increase in symptoms. Goal Time Frame: 2-4 Weeks Goal 3:: LTG: Pt. to complete all ADLs without increase in symptoms. Goal Time Frame: 4-6 Weeks Goal 4:: LTG: Pt. to have increased lumbar ROM by 50% in all directional without increase in symptoms. Goal Time Frame: 4-6 Weeks Goal 5:: STG: Pt. to sleep throughout the night without increase in symptoms. Goal Time Frame: 2-4 Weeks Goal 6:: STG: PT. to have reduce radicular symptoms to only lumbar spine showing signs of centralization. Goal Time Frame: 2-4 Weeks Rehabilitation Potential Physical Therapy Diagnosis: Pt. has signs and symptoms consistent with lumbar radiculopathy down her RLE. Pt. has marked hypomobility throughout her lumbar spine and decreased tolerance to all standing and functional mobility. Pt. would benefit from PT to increase her spine ROM and to increase her tolerance to all functional mobility. Rehabilitation Potential: Good Anticipated Interventions Patient/Client Instruction: Educate patient on: Condition, Plan of Care, Risk Factors and Benefits of Fitness Program For the Purpose of:: To improve decision making, To facilitate caregiver knowledge, To improve self management, To prevent re-injury, To improve ability to perform tasks related to life management and To improve tolerance to ADL's Therapeutic Exercise to Include: Strength training, Postural training, Flexibilty training, In an aquatic setting, Passive ROM, Active ROM, Dynamic Lumbar Stabilization and Jesica Exercises For the Purpose of:: To decrease pain, To decrease swelling/inflammation, To increase ROM, To improve nutrient delivery to tissue, To increase oxygenation perfusion, To improve muscle performance and motor function, To improve ability to perform ADL's, To improve health of tissue, To decrease soft tissue restriction and To increase flexibility/ROM Manual Therapy Techniques to Include: Mobilization, Functional dry needling and Soft tissue mobilization For the Purpose of:: To decrease pain, To decrease swelling/inflammation, To increase ROM, To improve nutrient delivery to tissue, To increase oxygenation perfusion and To improve muscle performance and motor function TENS: Yes Cryotherapy (ice pack, ice massage): Yes For the Purpose of:: To decrease pain, To decrease swelling/inflammation, To increase ROM, To improve nutrient delivery to tissue and To increase oxygenation perfusion Text: Thank you for the opportunity to evaluate your patient. For Medicare and Medicare HMO plans, please review the plan of care and approve it. It will need to be FAXED BACK to us at [phone] for Medicare purposes. For Medicare only, by signing this I certify the plan of care. Please let me know if there are questions or concerns regarding this plan of care. Physician Signature: Date:
== END 2024-03-28 19:00 | disposition home or self-care (01) ==
LOC: PT 15:00
PROVIDERS: PCP Family Medicine; Referring Provider Family Medicine; Visit Provider Family Medicine
DX: M54.31 Sciatica, right side (principal)
CPT/HCPCS: 97014; 97161; G0283

== ENCOUNTER → 2024-05-19 | Outpatient (CLI) | payer MEDICAID, SELFPAY ==
--- NOTE | 2024-05-19 14:10 | RAD_ITS ---
EXAM: XR LUMBOSACRAL SPINE, 2 OR 3 VIEWS CLINICAL INDICATION: leg pain and gt; 6 wks TECHNIQUE: Frontal and lateral views of the lumbar spine and sacrum. COMPARISON: No relevant prior studies available. FINDINGS: VERTEBRAE: Unremarkable. Preserved vertebral body height. No fracture. No spondylolisthesis. Preservation of the normal lumbar lordosis. No significant facet arthropathy. DISC SPACES: No acute findings. Disc spaces are maintained. GASTROINTESTINAL TRACT: Unremarkable as visualized. Included bowel gas pattern is non-obstructive. RAD/Lumbar Spine 2 or 3 Views IMPRESSION: No evidence of lumbar spinal fracture or spondylolisthesis. Electronically Signed: Earl Casanova MD at 19:02 EDT ,
--- NOTE | 2024-05-19 14:10 | RAD_ITS ---
INDICATION: R sciatica and gt; 6 weeks EXAMINATION/TECHNIQUE: X-RAY - XR Hips Bilateral with Pelvis when performed; 2 Views COMPARISON: FINDINGS: PELVIC BONES: No displaced fracture, destructive or sclerotic lesions. Note that overlapping bowel shadows may however obscure fine detail. Sacroiliac joints are unremarkable. No widening of the pubic symphysis. HIPS: The articular structures are unremarkable. No displaced fracture seen in this frontal view. SOFT TISSUES: No soft tissue swelling or gas. RAD/Hips B/L min 2 views w/ Pelvis IMPRESSION: No evidence of displaced pelvic or hip fracture. Electronically Signed: Renaldo Neal DO at 18:59 EDT Reading Location ID and State: [facility] / [place] Tel [phone], Service support ,
== END | disposition home or self-care (01) ==
LOC: MTRAD 14:10
PROVIDERS: PCP Family Medicine; Referring Provider Family Medicine; Visit Provider Family Medicine
DX: M79.604 Pain in right leg (principal); M54.31 Sciatica, right side
CPT/HCPCS: 72100; 73521

== ENCOUNTER → 2024-07-31 | Outpatient (CLI) | payer MEDICAID, SELFPAY | END | disposition home or self-care (01) | LOC: MRI 09:45 | PROVIDERS: PCP Family Medicine; Referring Provider Orthopaedic Surgery Orthopaedic Surgery of the Spine; Visit Provider Orthopaedic Surgery Orthopaedic Surgery of the Spine | DX: M54.16 Radiculopathy, lumbar region (principal) | CPT/HCPCS: 72148 ==

== ENCOUNTER → 2024-08-11 | Outpatient (CLI) | payer MEDICAID, SELFPAY ==
[2024-08-11 14:07] LABS: Absolute Lymphocyte Count 2.92 X10^3/uL (0.83-4.51); Absolute Neutrophil Count 4.7 X10^3/uL (2.0-7.7); Basophil# 0.06 X10^3/uL; Basophil% 0.7 % (0-1); Eosinophil# 0.21 X10^3/uL; Eosinophils% 2.4 % (0-5); Hematocrit 41.3 % (37-47); Lymphocyte # 2.92 X10^3/ul (0.83-4.51); Lymphocyte % 33.4 % (19-41); Mean Corp Hgb Conc 33.9 g/dL (32-36); Mean Corpuscular Hgb 28.7 pg (27.0-32.0); Mean Corpuscular Volume 84.8 fL (81-99); Mean Platelet Vol. 9.7 fl (6.2-12.0); Monocyte# 0.84 X10^3/uL; Monocyte% 9.6 % (0-10); NRBC Flagged by Analyzer 0 % (0-5); Neutrophil # 4.69 X10^3/uL (2.7-7.7); Neutrophil % 53.7 % (47-70); Platelet Count 313 K/mm3 (150-450); RBC Distribution Width SD 40.2 fl (35.1-43.9); Red Blood Count 4.87 M/mm3 (4.2-5.4); White Blood Count 8.7 K/mm3 (4.4-11.0)
== END | disposition home or self-care (01) ==
LOC: LAB 13:31
PROVIDERS: PCP Family Medicine; Referring Provider Student in an Organized Health Care Education/Training Program; Visit Provider Student in an Organized Health Care Education/Training Program
DX: R10.84 Generalized abdominal pain (principal)
CPT/HCPCS: 36415; 85025

== ENCOUNTER 2024-10-17 13:33 | Day surgery (SDC) | payer MEDICAID, SELFPAY ==
[2024-10-17] VITALS (8 sets, daily range): BP systolic 81–95; BP diastolic 40–53; PULSE 56–74; RESP 16; TEMP 36.2–37.2; O2SAT 97–99; BMI 29.7
--- NOTE | 2024-10-17 14:12 | PRE.ANES_ITS ---
ASA Classification* ASA Classification ASA Classification: 2 Assessment & Plan Anesthesia* Anesthesia Assessment Anesthesia Assessment: Discussed sedation and/or anesthesia options, risks, benefits, and alternatives with patient/parents/legal guardian/POA. Questions invited. The patient/parents/legal guardian/POA seems to understand and agrees to proceed with anesthesia plan. Reviewed the physical assessment, medical history, allergy history and patient home medications list prior to surgery/procedure/anesthetic and documented any changes. Performed airway and anesthesia risk assessments. Anesthesia Type Anesthesia Type: MAC History Source History Obtained from:: Patient and Chart Anesthesia Focused Assessment* Temperature: 97.2 F Pulse Rate: 74 Blood Pressure: 94/50 Respiratory Rate: 16 Pulse Ox: 98 Oxygen Delivery Method: Room Air Airway Assessment Mouth opens: >3 cm Mallampati Score: IV Teeth Condition: Missing (Patient is edentulous.) Neck Range of motion (ROM): Full ROM Focused Labs Anesthesia Preop lab: CBC WBC 8.7 K/mm3 (4.4-11.0) 08/11/24 13:34 08/11/24 RBC 4.87 M/mm3 (4.2-5.4) 08/11/24 13:34 08/11/24 Hgb 14.0 g/dL (12.0-15.0) 08/11/24 13:34 08/11/24 Hct 41.3 % (37-47) 08/11/24 13:34 08/11/24 Plt Count 313 K/mm3 (150-450) 08/11/24 13:34 08/11/24 CHEMISTRY Potassium 3.8 mmol/L (3.5-5.1) 06/11/23 09:17 06/11/23 Sodium 137 mmol/L (136-145) 06/11/23 09:17 06/11/23 Magnesium 2.4 mg/dL (1.6-2.6) 06/11/23 09:17 06/11/23 BUN 7 mg/dL (7-18) 06/11/23 09:17 06/11/23 Creatinine 0.74 mg/dL (0.55-1.02) 06/11/23 09:17 06/11/23 Glucose 82 mg/dL (74-106) 06/11/23 09:17 06/11/23 COAG Urine Test Negative Negative 10/05/22 10:49 10/05/22 Pre-Assessment Diagnosis/Proposed Procedure Planned Operative Procedure(s): EGD Anesthesia History Anesthesia History - vice president underwriting: Anesthesia History - vice president underwriting Hx Hospitalization No 10/13/24 11:53 Any Problems With Anesthesia Yes: N,V 10/13/24 11:53 Cholinesterase deficiency No 10/13/24 11:53 You/Your Family Experience No 10/13/24 11:53 fever (hyperthermia) with Relationship Recent Exposure to Contagious No 10/17/24 13:56 Disease Does patient have nerve No 10/13/24 11:53 stimulator Patient instructed to have device shut off --Does patient have Pacemaker No 10/17/24 13:57 or ICD? When Was Last Pacemaker Check QUESTION #4 FULL TEXT: You/Your Family Experience fever (hyperthermia) with Anesthesia Last Oral Intake Last Oral intake: Last Oral Intake NPO since 08:00 10/17/24 13:57 Meds taken in AM with sips of No 10/17/24 13:57 water? Meds patient instructed to take am of surgery Any additional information?: Yes NPO since: 08:00 (Patient water 8 AM.) Meds taken in AM with sips of water?: No PONV PONV - vice president underwriting: PONV - vice president underwriting Female Yes 10/13/24 11:53 HX of Motion Sickness Yes 10/13/24 11:53 HX of N/V After Surgery Yes 10/13/24 11:53 Non-Smoker No 10/13/24 11:53 Duration of Surgery greater No 10/13/24 11:53 than 60 minutes Number of Risk Factors 3 10/13/24 11:53 PONV Score Moderate Risk 10/13/24 11:53 Height & Weight Height & Weight: Anesthesia: Height & Weight Height 5 ft 4 in 10/17/24 13:57 Weight: 78.471 kg 10/17/24 13:57 Body Mass Index (BMI) 29.7 10/17/24 13:57 Respiratory Assessment Respiratory Assessment - vice president underwriting: Respiratory Tract Infection Hx - vice president underwriting Hx Respiratory Tract Infection No 10/13/24 11:53 Any additional information?: Yes Hx Respiratory Tract Infection: Yes (Patient had the flu. Resolved about 3 weeks ago.) STOP Sleep Apnea STOP Sleep Apnea - vice president underwriting: STOP Sleep Apnea - vice president underwriting Hx Hypertension No 10/13/24 11:53 Hx Sleep Apnea No 10/13/24 11:53 CPAP BIPAP Do you snore loudly (louder No 10/13/24 11:53 than talking or can be heard Do you often feel tired/ No 10/13/24 11:53 fatigued/ sleepy during daytime? Has anyone observed you stop No 10/13/24 11:53 breathing during sleep? STOP Results Negative 10/13/24 11:53 QUESTION #5 FULL TEXT : Do you snore loudly (louder than talking or can be heard through closed doors)? Tobacco Use History Tobacco Use History - vice president underwriting: Tobacco Use History - vice president underwriting Tobacco Use Smoking Status Current every day smoker 10/13/24 11:53 Hx Tobacco Use Yes 10/13/24 11:53 Years Smoking Packs Smoked per Day Smoking Cessation Date was within the last 15 years Hx Smoking Cessation Date Hx Smoking Cessation No 10/13/24 11:53 Counseling Any additional information?: Yes Smoking Status: Current every day smoker (Patient smoked today.) Hematologic Medial History Hematologic Hx - vice president underwriting: Hematologic Medical Hx - outsole tacker Hx of Blood Transfusion No 10/13/24 11:53 Hx of Transfusion in last 3 No 10/13/24 11:53 Months Date of Last Transfusion (if within last 3 months) Ever experience any problems No 10/13/24 11:53 with transfusion(s)? Specify any problems Hx of Preganancy in last 3 No 10/13/24 11:53 Months Nurse Filling Out Transfusion DSCHRIBER 10/13/24 11:53 & Questions: Date: 10/13/24 10/13/24 11:53 Time: 11:55 10/13/24 11:53 Patient unable to answer at this time (ie. confused, unrespo /Reproduction History /Reproductive History - vice president underwriting: /Reproductive Hx- vice president underwriting Hx Now No 10/13/24 11:53 Gestational Age (in weeks): EDC: Hx Hx Para Hx Section SAB No 10/13/24 11:53 PFSH Medical History Anemia Back pain Migraine headache History of hiatal hernia Gastric reflux Leg cramps History of pain when walking Diarrhea Abnormal CT scan Epigastric pain Wears dentures Wears glasses Marijuana use Smoker Right carpal tunnel syndrome Home Medications ?Medication ?Instructions ?Recorded ?Last Taken ?Type potassium chloride 10 mEq 10 meq PO DAILY #3 tabs 12/0610/16/24 Rx tablet,extended release baclofen 5 mg tablet 5 mg PO TID 08/02/24 5 History tramadol 50 mg tablet 50 mg PO BID PRN pain Unknown History omeprazole 20 mg capsule,delayed 20 mg PO QDAY #60 cap s 08/11/24 10/16/24 Rx release Allergy/AdvReac Type Severity Reaction Status Date / Time doxycycline Allergy Intermediate Hives Verified 10/17/24 13:53 hydrocodone (From Vicodin) Allergy Swelling Verified 10/17/24 13:53 metronidazole (From Flagyl) Allergy Hives Verified 10/17/24 13:53 codeine AdvReac Swelling Verified 10/17/24 13:53 ketorolac tromethamine (From AdvReac Swelling Verified 10/17/24 13:53 Toradol) orphenadrine citrate (From AdvReac Swelling Verified 10/17/24 13:53 Norflex) Family History Mother Cancer ovarian cancer Brother Diabetes Father CVA (cerebral vascular accident) Surgical History History of carpal tunnel surgery of right wrist Hx of appendectomy Hx of section Social History household members: spouse and children Smoking Status: Current every day smoker tobacco type: cigarettes alcohol intake: current alcohol intake frequency: a few times a week Review of Systems (Anesthesia) ROS Narrative System reviewed and no additional complaints, except as documented.
--- NOTE | 2024-10-17 14:45 | EGD_PTH ---
PATIENT: LEROY GREGORIO LOC: EN U#:[id number] AGE/SX: 38/F ROOM: RE10/17/[address]: Dr. Vidal Cuevas DO : 1985 BED: DIS: 10/17/2024 SPEC #: [id number] RECD: 10/18/24 07:25 STATUS: ARACELY REDawson #: [id number] REED: 10/17/24 14:[address]: Vidal Cuevas DEPT: SURGICAL PATHOLOGY RECD BY: Jeancarlos Zambrano ENTERED: 10/18/24 09:23 SP TYPE: EGD BIOPSY STEFFI DR: Dr. Aaron Stanley MD Tissues: A - Duodenum, NOS B - Gastric mucous membrane C - Esophagus, NOS Procedures: Special Stain Group I Surgery Specimen Level IV Alcian Blue/PAS (control) HEADER OPERATION: EGD PRE-OP DIAGNOSIS: Abdominal pain, epigastric pain TISSUE SUBMITTED: A- Duodenum biopsy, B- Gastric body biopsy, C- Distal esophagus biopsy MICROSCOPIC DIAGNOSIS A. Duodenum, biopsy: Fragments of duodenal mucosa with mild acute and chronic inflammation. B. Gastric body, biopsy: Mild gastritis. See microscopic description and comment. C. Distal esophagus, biopsy: A fragment of gastroesophageal mucosa with chronic inflammation. Intestinal metaplasia (goblet cell metaplasia) not identified. See comment. 10/19/2024 COMMENT B. The results of immunohistochemistry for Helicobacter pylori will be reported separately ([id number]). C. Alcian blue/PAS stain with matched control is used in the evaluation of the specimen. MICROSCOPIC DESCRIPTION Slides are reviewed. B. The specimen shows fragments of gastric mucosa with chronic inflammatory cell infiltrates in the lamina propria consisting of lymphocytes and plasma cells, consistent with mild chronic gastritis. GROSS DESCRIPTION A. Received in fixative is one container labeled with the patient's name and designated Duodenum biopsy. The specimen consists of multiple irregular fragments of light donahue soft tissue that in aggregate measure 0.9 x 0.5 x 0.1 cm. The specimen is totally submitted in one cassette. B. Received in fixative is one container labeled with the patient's name and designated Gastric body biopsy. The specimen consists of multiple irregular fragments of light donahue soft tissue that in aggregate measure 0.8 x 0.5 x 0.1 cm. The specimen is totally submitted in one cassette. C. Received in fixative is one container labeled with the patient's name and designated Distal esophagus biopsy. The specimen consists of one irregular fragment of light donahue soft tissue that measures 0.4 x 0.4 x 0.1 cm. The specimen is totally submitted in one cassette. MS/mr 10/18/2024 TC:3 CPT:[id number]
--- NOTE | 2024-10-17 14:45 | IMM_PTH ---
PATIENT: LEROY GREGORIO LOC: EN U#:[id number] AGE/SX: 38/F ROOM: RE10/17/[address]: Dr. Vidal Cuevas DO : 1985 BED: DIS: 10/17/2024 SPEC #: [id number] RECD: 10/18/24 09:24 STATUS: ARACELY REQ #: [id number] REED: 10/17/24 14:[address]: Vidal Cuevas DEPT: IMMUNOHISTOCHEMISTRY RECD BY: Sander Cai ENTERED: 10/18/24 09:24 SP TYPE: IMMUNO OTHR DR: Dr. Aaron Stanley MD Tissues: B - Gastric mucous membrane Procedures: H Pylori (initial) PHYSICIAN & INSTITUTION [place] [id number] SPECIMEN INFORMATION: Tissue Source: B- Gastric body biopsy Clinical Info: Abdominal pain, epigastric pain Specimen Number: [id number] CPT code: 52811 METHODOLOGY: Deparaffinized sections of prefer/formalin-fixed tissue or PAP/DQ stained slides are incubated with monoclonal/polyclonal antibodies/oligonucleotide probes. Localization is made via biotin free immunoperoxidase method. Appropriate controls are performed and reacted as expected. Results on target cell population are indicated in the following table: RESULTS: ANTIBODY / CLONE RESULT Block B H Pylori (polyclonal) negative These tests were developed and their performance characteristics determined by [facility]. They may not have been cleared or approved by the U.S. Food and Drug Administration. The FDA has determined that such clearance or approval is not necessary. The above immunohistochemical/dualISH markers are ordered and reviewed by the Pathologist. INTERPRETATION: B. Gastric body, biopsy: Negative for Helicobacter pylori organisms. 10/19/2024
--- NOTE | 2024-10-17 14:48 | PCM.HP.STD ---
HPI - General General Date of Admission: 10/17/24 Date of Service: 10/17/24 Chief Complaint: abdominal pain HPI Narrative LEROY GREGORIO, is a 38 F who presents today for the endoscopic evaluation of abdominal pain. PMH marijuana use, smoker. FH limited as parents young; mother ovarian cancer, father stroke/Heart attack.? ? [facility] hospitalization 08.22.22-08.23.22(?) with N/V/D and abdominal pain.?Biochemical workup?CBC, CMP, LFT without pertinent abnormality.? Stool C.difficile, EP WNL.?CT abd/pel?noting moderate small bowel wall thickening of LUQ; fatty infiltration of right colonic wall.? ? [facility] ED presentation 10.05.22 with N/V/D and abdominal pain radiating into her back without alleviating factors. ?Biochemical workup?CBC (hgb H15.2), CMP, LFT, lipase, without pertinent abnormality.? CT abd/pel?minimal increased marking in left lower lung; degenerating follicle seen in right ovary; enlarged fibroid uterus. Normal stomach, small bowel and colon noted.? US RUQ?hepatic measurement 16.8cm with normal echogenicity. Exam without acute/chronic finding.? ? PCP OV 10.05.22 with abdominal pain and loose stools for several days. Refer to GI and [facility]?EGD and colonoscopy Dr. Trent 11.13.22?EGD without visual abnormality. Pathology gastritis. H.pylori negative. ? Colonoscopy three medium TA polyps? ? *[facility] established 01.01.23 generalized abdominal discomfort and loose stools onset . She has had some weight loss r/t appetite change. Bowels move anywhere from daily to 2-3/day; prior to symptoms onset she was having constipation difficulty. PPI and Carafate prescribed by [facility] was unhelpful. ?Biochemical?CBC, ESR,?CMP (potassium L3.2), LFT, LDH,?ROSALIE comp, ANCA, GAME, MONY, celiac without pertinent abnormality. CRP magnesium not drawn.? Crohn?s (apANCA, AMCA)?Stool Calprotectin,?C.Difficile, EP,?lactoferrin,?O/P, Giardia WNL. ? Elastase L<50? Contact 01.01.23 to take potassium supplement for three days and repeat potassium. Update PCP regarding chronic hypokalemia.? Contact 01.12.23?start doxycycline and Zenpep; recommend capsule endoscopy. PCP did start her on potassium supplements.?Biochemical?potassium, magnesium, sebastian syndrome panel WNL. ? CRP H3.61? Contact 01.28.23 with results. She is dong well at this time with use of doxycycline and Zenpep; she can tell when she does not take the Zenpep prior to eating. Capsule endoscopy upcoming and will touch base again prior to next appointment.?Capsule endoscopy 02.18.23?no visual abnormality? ? OV 9. Pt continues to take Zenpep for EPI. Is having trouble taking the multiple pills a day. Also does not feel like its as helful anymore. Has pain when eating sometimes. Bowels are loose but no diarrhea. OV 12..24 Pt has had acute issues over the past couple of days with nausea/vomiting and abdominal pain. She feels this pain is different as it is diffuse. She presented to the ED in [place] with work up showing leukocytosis and normal CT abd/pelvis. She has been unable to eat much without vomiting. She is not taking any medications for her bowels now. She denies diarrhea, constipation, heartburn, or melena. [facility] Medical History Anemia Back pain Migraine headache History of hiatal hernia Gastric reflux Leg cramps History of pain when walking Diarrhea Abnormal CT scan Epigastric pain Wears dentures Wears glasses Marijuana use Smoker Right carpal tunnel syndrome Home Medications ?Medication ?Instructions ?Recorded ?Last Taken ?Type potassium chloride 10 mEq 10 meq PO DAILY #3 tabs 01/01/23 10/16/24 Rx tablet,extended release baclofen 5 mg tablet 5 mg PO TID 08/02/24 09/19/24 History tramadol 50 mg tablet 50 mg PO BID PRN pain 08/02/24 Unknown History omeprazole 20 mg capsule,delayed 20 mg PO QDAY #60 caps 08/11/24 10/16/24 Rx release Allergy/AdvReac Type Severity Reaction Status Date / Time doxycycline Allergy Intermediate Hives Verified 10/17/24 13:53 hydrocodone (From Vicodin) Allergy Swelling Verified 10/17/24 13:53 metronidazole (From Flagyl) Allergy Hives Verified 10/17/24 13:53 codeine AdvReac Swelling Verified 10/17/24 13:53 ketorolac tromethamine (From AdvReac Swelling Verified 10/17/24 13:53 Toradol) orphenadrine citrate (From AdvReac Swelling Verified 10/17/24 13:53 Norflex) Family History Mother Cancer ovarian cancer Brother Diabetes Father CVA (cerebral vascular accident) Surgical History History of carpal tunnel surgery of right wrist Hx of appendectomy Hx of section Social History household members: spouse and children Smoking Status: Current every day smoker (Patient smoked today.) tobacco type: cigarettes alcohol intake: current alcohol intake frequency: a few times a week ROS Constitutional Constitutional: Denies fatigue, fever(s), poor appetite, weight gain or weight loss Gastrointestinal Gastrointestinal: Denies belching, bloating, change in bowel habits, change in stool character, chewing difficulty, coffee ground emesis, constipation, cramping, diarrhea, dyspepsia, dysphagia, early satiety, excessive flatus, fecal incontinence, heartburn, hematemesis, hematochezia, hemorrhoids, loose stools, melena, nausea, odynophagia, rectal bleeding, tenesmus, vomiting or weight changes Vital Signs Vital Signs Vital Signs: 10/17/24 13:56 10/17/24 13:57 10/17/24 14:19 Temperature 97.2 F L 97.2 F L Temperature Source Temporal Pulse Rate 74 74 Respiratory Rate 16 16 Respiratory Pattern Normal Blood Pressure 94/50 L 94/50 L Blood Pressure Mean 64 Blood Pressure Source Monitor Blood Pressure Position Semi-Fowlers Blood Pressure Location Right Arm Pulse Ox 98 98 Oxygen Delivery Method Room Air Room Air Weight Weight: 173 lb Body Mass Index (BMI) 29.7 Physical Exam Const alert, oriented x3, no apparent distress and healthy appearing General Appearance: cooperative GI normal to inspection, nondistended, normoactive bowel sounds, soft to palpation, non-tender and non-distended Percussion: normal to percussion Rectal Exam: deferred Assessment & Plan Assessment/Plan (1) Abdominal pain: QUALIFIERS: Abdominal location: generalized Qualified Code(s): R10.84 - Generalized abdominal pain (2) Epigastric pain: PLAN: C Assessment and Plan Assessment and Plan (1) Abdominal pain: Status: Chronic Qualifiers: Abdominal location: generalized Qualified Code(s): R10.84 - Generalized abdominal pain Plan: This is a 38 yo female established with [facility] for EPI here today for acute issues with abdominal pain and n/v. She presented to the [place] ED and workup showed leukocytosis and hypokalemia. CT abd/pelvis was normal. I will start her on PPI and sucralfate and she will undergo EGD to assess for gastritis. The etiology may be related to a viral infection due to the elevated WBC. If this resolves she may cancel the scope -Start PPI and sucralfate -EGD -CBC
--- NOTE | 2024-10-17 15:52 | PCM.POST.ANE ---
Anesthesia: Postop Eval I Current Vital Signs Temperature: 97.6 F Pulse Rate: 67 Blood Pressure: 81/40 Respiratory Rate: 16 Pulse Ox: 99 Oxygen Delivery Method: Room Air Assessment Airway patent: Yes Spontaneous unlabored respirations: Yes Mental status: Awake nausea: Yes Vomiting: No Anesthesia Complication: Yes Anesthesia Complication Comment:: PONV, promethazine adm IV in PACU by anesthesia Fluid Hydration Crystalloid volume administer (ml): 30 Total IV fluid infused: 30 Progress Note Anesthesia document: Postop Eval 1 completed: Yes
--- NOTE | 2024-10-17 15:53 | OP.CCLET_ITS ---
10/17/2024 Aaron Stanley [address] [place] [address] Re : Upper GI endoscopy procedure for Lexie Vargas Dear Dr. Stanley This procedure was performed on Thursday, October 17, 2024. My impressions and recommendations are as follows: Impressions : - No specimens collected. Recommendations : - Discharge patient to home. - Resume previous diet. - Continue present medications. - Await pathology results. My findings are described in the full procedure note, which is enclosed. If I can be of further assistance, please feel free to contact me at . Sincerely, Vidal Cuevas, 10/17/2024 3:52:36 PM This report has been signed electronically.
--- NOTE | 2024-10-17 15:53 | OP.EGD_ITS ---
Patient Name: Lexie Vargas Procedure Date: 10/17/2024 3:15 PM Date of : 1985 Age: 38 Procedure: Upper GI endoscopy Indications: Screening procedure, Surveillance procedure, Epigastric abdominal pain, Iron deficiency anemia, Functional Dyspepsia Providers: Vidal Cuevas DO Medicines: Monitored Anesthesia Care Patient Profile: This is a 38 year old female. Refer to note in patient chart for documentation of history and physical. Patient has symptoms of chronic epigastric abdominal pain, chronic nausea and chronic vomiting. Complications: No immediate complications. Procedure: Pre-Anesthesia Assessment: - Prior to the procedure, a History and Physical was performed, and patient medications and allergies were reviewed. The risks and benefits of the procedure and the sedation options and risks were discussed with the patient. All questions were answered and informed consent was obtained. Patient identification and proposed procedure were verified by the physician in the pre-procedure area. Mental Status Examination: alert and oriented. Airway Examination: normal oropharyngeal airway and neck mobility. Respiratory Examination: clear to auscultation. CV Examination: normal. Prophylactic Antibiotics: The patient does not require prophylactic antibiotics. Prior Anticoagulants: The patient has taken no anticoagulant or antiplatelet agents. ASA Grade Assessment: II - A patient with mild systemic disease. After reviewing the risks and benefits, the patient was deemed in satisfactory condition to undergo the procedure. The anesthesia plan was to use monitored anesthesia care (MAC). Immediately prior to administration of medications, the patient was re-assessed for adequacy to receive sedatives. The heart rate, respiratory rate, oxygen saturations, blood pressure, adequacy of pulmonary ventilation, and response to care were monitored throughout the procedure. The physical status of the patient was re-assessed after the procedure. After obtaining informed consent, the endoscope was passed under direct vision. Throughout the procedure, the patient's blood pressure, pulse, and oxygen saturations were monitored continuously. The gastroscope was introduced through the mouth, and advanced to the second part of duodenum. The upper GI endoscopy was accomplished without difficulty. The patient tolerated the procedure well. Scope In: 3:29:13 PM Scope Out: 3:33:57 PM Total Procedure Duration Time 0 hours 4 minutes 44 seconds Findings: LA Grade A (one or more mucosal breaks less than 5 mm, not extending between tops of 2 mucosal folds) esophagitis with no bleeding was found 39 to 40 cm from the incisors. Biopsies were taken with a cold forceps for histology. Verification of patient identification for the specimen was done. Estimated blood loss was minimal. A small hiatal hernia was present. Suspect gastroparesis due to absence of peristalsis, patient symptoms and retained gastric contents. Biopsies were taken with a cold forceps for histology. Verification of patient identification for the specimen was done. Estimated blood loss was minimal. Biopsies were taken with a cold forceps for Helicobacter pylori testing. Verification of patient identification for the specimen was done. Estimated blood loss was minimal. Diffuse mildly erythematous mucosa without active bleeding and with no stigmata of bleeding was found in the first portion of the duodenum. Biopsies were taken with a cold forceps for histology. Verification of patient identification for the specimen was done. Estimated blood loss was minimal. Impression: - No specimens collected. Recommendation: - Discharge patient to home. - Resume previous diet. - Continue present medications. - Await pathology results. Procedure Code(s): --- Professional --- 51981, Esophagogastroduodenoscopy, flexible, transoral; with biopsy, single or multiple CPT copyright 2021 [employer]. All rights reserved. The codes documented in this report are preliminary and upon transformer molder review may be revised to meet current compliance requirements. Vidal Cuevas DO 10/17/2024 3:52:36 PM This report has been signed electronically. Number of Addenda: 0 Note Initiated On: 10/17/2024 3:15 PM
--- NOTE | 2024-10-17 18:33 | PCM.POSTANE2 ---
Anesthesia Postop Eval I Sum Postop Eval Completion status Anesthesia document: Postop Eval 1 completed: Yes Anesthesia Postop Eval I Summary Anesthesia Postop Eval I Summary: Anesthesia Postop Eval I: Assessment Summary Airway patent Yes 10/17/24 15:53 [email or web address] Spontaneous unlabored Yes 10/17/24 15:53 [email or web address] respirations Mental status Awake 10/17/24 15:53 [email or web address] nausea Yes 10/17/24 15:53 [email or web address] Vomiting No 10/17/24 15:53 [email or web address] Anesthesia Postop Eval I: Fluid Summary Crystalloid volume administer 30 10/17/24 15:53 [email or web address] (ml) Colloids volume administered ( ml) Blood Product volume administered (ml) Total IV fluid infused 30 10/17/24 15:53 [email or web address] Anesthesia Postop Eval I: Summary Notes Anesthesia Complication Yes 10/17/24 15:53 [email or web address] Anesthesia Complication PONV, promethazine 10/17/24 15:53 [email or web address] Comment: adm IV in PACU by anesthesia Post-operative progress note Anesthesia: Postop Eval II Evaluation Mental status: Awake and Calm Pain Level: 0 nausea: No Vomiting: No Complications Anesthesia Complication: No
== END 2024-10-17 16:18 | disposition home or self-care (01) ==
LOC: EN 13:34 → AC 13:35
PROVIDERS: PCP Family Medicine; Referring Provider Family Medicine; Visit Provider Internal Medicine Gastroenterology
PROC: 0DJ08ZZ Inspection of Upper Intestinal Tract, Via Natural or Artificial Opening Endoscopic (ICD-10-PCS; CPT 43235; principal; 2024-10-17 14:40)
DX: K29.80 Duodenitis without bleeding (principal); K20.90 Esophagitis, unspecified without bleeding; K29.70 Gastritis, unspecified, without bleeding; K21.9 Gastro-esophageal reflux disease without esophagitis; D50.9 Iron deficiency anemia, unspecified; F17.210 Nicotine dependence, cigarettes, uncomplicated; Z79.899 Other long term (current) drug therapy
CPT/HCPCS: 43239; 88305; 88312; 88342; A4216; J2405

== ENCOUNTER → 2024-12-21 | Outpatient (CLI) | payer MEDICAID, SELFPAY ==
[2024-12-21 17:55] LABS: Absolute Lymphocyte Count 3.77 X10^3/uL (0.83-4.51); Absolute Neutrophil Count 7.9 X10^3/uL (2.0-7.7); Basophil% 0.8 % (0-1); Eosinophil# 0.17 X10^3/uL; Eosinophils% 1.3 % (0-5); Hematocrit 44.5 % (37-47); Hemoglobin 15.2 g/dL (12.0-15.0); Lymphocyte # 3.77 X10^3/ul (0.83-4.51); Lymphocyte % 29.3 % (19-41); Mean Corp Hgb Conc 34.2 g/dL (32-36); Mean Corpuscular Hgb 29.2 pg (27.0-32.0); Mean Corpuscular Volume 85.6 fL (81-99); Mean Platelet Vol. 9.8 fl (6.2-12.0); Monocyte# 0.92 X10^3/uL; Monocyte% 7.1 % (0-10); NRBC Flagged by Analyzer 0 % (0-5); Neutrophil # 7.89 X10^3/uL (2.7-7.7); Neutrophil % 61.3 % (47-70); Platelet Count 332 K/mm3 (150-450); RBC Distribution Width CV 13.6 % (11.6-14.6); RBC Distribution Width SD 42.5 fl (35.1-43.9); White Blood Count 12.9 K/mm3 (4.4-11.0)
[2024-12-21 18:25] LABS: ALB/GLOB Ratio 1.3 RATIO (0.9-2.4); AST(SGOT) 22 U/L (<=31); Alanine Aminotransfer ALT/SGPT 16 U/L (<=34); Albumin, Serum 4.1 g/dL (3.5-5.0); Alkaline Phosphatase 106 U/L (35-104); Anion Gap 11 (5-15); BUN 8 mg/dL (4-19); BUN/Creat Ratio 9.9 RATIO (10-20); Calcium,Total 9.8 mg/dL (7.6-11.0); Carbon Dioxide 25.5 mmol/L (21.0-32.0); Chloride 101 mmol/L (98-108); Creatinine, Serum 0.78 mg/dL (0.70-1.20); EST Glomerular Filtration Rate 98 (>60); Globulin 3.2 g/dL (2.2-4.2); Glucose 98 mg/dL (70-99); Magnesium 2.2 mg/dL (1.5-2.2); Potassium 3.8 mmol/L (3.3-5.1); Protein, Total 7.3 g/dL (5.9-8.4); Sodium Level 137 mmol/L (133-145); Total Bilirubin 0.33 mg/dL (0.00-1.30)
== END | disposition home or self-care (01) ==
LOC: MFPLAB 15:03
PROVIDERS: PCP Family Medicine; Referring Provider Family Medicine; Visit Provider Family Medicine
DX: M54.31 Sciatica, right side (principal)
CPT/HCPCS: 36415; 80053; 83735; 85025